=== PATIENT | female | born 1995 | race Two or more races ===

== ENCOUNTER 2020-06-28 13:47 | Outpatient (REF) | payer OTHER, SELFPAY ==
--- NOTE | 2020-06-28 | US_ITS ---
EXAMINATION: US SOFT TISSUE OF THE NECK CLINICAL INFORMATION: Right neck fullness. Status post hormone therapy. COMPARISON: None TECHNIQUE: Linear transducer grayscale and color Doppler examination of right neck with comparison left neck was performed. FINDINGS: Imaging of the right neck in the submandibular space reveals homogeneous submandibular gland, normal size and shape. It is similar to the left submandibular gland. The right submandibular gland measures 3.8 x 1.5 x 2.8 cm. The left submandibular gland measures 3.7 x 1.5 x 2.1 cm. Within the right submandibular space, there is a small lymph node measuring 1.7 x 0.9 x 1.5 cm. It has a normal central echogenic medulla and a hypoechoic cortex, normal characteristics. No additional lymph node seen. US/US soft tiss head and/or neck IMPRESSION: Small right submandibular space lymph node. It has benign characteristics. No additional lymph node seen. Bilateral submandibular glands are symmetrical, homogeneous and normal.
[2020-06-28 18:11] LABS: MANUAL DIFF FLAG NO
[2020-06-28 18:17] LABS: Basophils Absolute Auto 0.1 X10*3/uL (0.0-0.2); Basophils Percent Auto 0.6 % (0-2); Eosinophils Absolute Auto 0.1 X10*3/uL (0.0-0.4); Eosinophils Percent Auto 1.8 % (0-4); Hematocrit 39.5 % (37-47); Hemoglobin 12.8 g/dl (12.0-16.0); Imm Gran Abs Auto 0.03 X10*3/uL (0.00-0.03); Imm Gran Pct Auto 0.4 % (0.0-0.4); Lymphocytes Percent Auto 25.7 % (20-40); Mean Corpuscular HGB Conc 32.4 g/dl (31.0-35.0); Mean Corpuscular Volume 86.4 fL (80-98); Mean Platelet Volume 8.8 fL (9.4-12.3); Monocytes Absolute Auto 0.5 X10*3/uL (0.1-1.2); Monocytes Percent Auto 6.7 % (2-11); Neutrophils Absolute Auto 5.1 X10*3/uL (2.0-8.3); Neutrophils Percent Auto 64.8 % (45-73); Platelet Count 419 X10*3/uL (160-400); Red Blood Count 4.57 X10*6/uL (4.20-5.50); Red Cell Distribution Width 12.5 % (11.0-16.0); White Blood Count 7.9 X10*3/uL (4.8-10.8)
[2020-06-28 18:48] LABS: Cholesterol 138 mg/dL; HDL Cholesterol 49 mg/dL; LDL Cholesterol Calculated 76 mg/dl; Triglycerides 67 mg/dL
[2020-06-30 14:27] LABS: Follicle Stimulating Hormone 6.9 mIU/mL; Lutenizing Hormone 23.7 mIU/mL
[2020-06-30 19:02] LABS: LDL Cholesterol Direct 80 mg/dL (<100)
[2020-07-04 19:01] LABS: Estradiol Ultra Sensitive 283 pg/mL
[2020-07-05 12:47] LABS: Testosterone, Total 33 ng/dL (2-45)
== END 2020-06-28 13:48 | disposition home or self-care (01) ==
LOC: HO.US 13:47
PROVIDERS: Absent Provider Pediatrics Pediatric Endocrinology; PCP Pediatrics; Visit Provider Pediatrics
DX: R22.0 Localized swelling, mass and lump, head (principal); R22.1 Localized swelling, mass and lump, neck; F64.0 Transsexualism
CPT/HCPCS: 36415; 76536; 80061; 82670; 83001; 83002; 83721; 84403; 85025

== ENCOUNTER 2020-07-16 14:24 | Outpatient (REF) | payer OTHER, SELFPAY ==
[2020-07-16 15:26] LABS: Hematocrit 39.2 % (37-47); Hemoglobin 12.9 g/dl (12.0-16.0); Mean Corpuscular HGB Conc 32.9 g/dl (31.0-35.0); Mean Corpuscular Hemoglobin 28.3 pg (27.0-33.0); Platelet Count 438 X10*3/uL (160-400); Red Blood Count 4.56 X10*6/uL (4.20-5.50); Red Cell Distribution Width 12.5 % (11.0-16.0)
[2020-07-16 15:47] LABS: Glucose Random 89 mg/dL (60-115)
[2020-07-16 15:55] LABS: Estimated Average Glucose 103 mg/dL; Hemoglobin A1c % 5.2 %
[2020-07-16 16:15] LABS: Erythrocyte Sedimentation Rate 4 MM/HR (0-20)
== END 2020-07-16 14:25 | disposition home or self-care (01) ==
LOC: HO.LAB 14:24
PROVIDERS: Absent Provider Pediatrics; PCP Pediatrics; Visit Provider Pediatrics Pediatric Endocrinology
DX: R63.4 Abnormal weight loss (principal)
CPT/HCPCS: 36415; 82947; 83013; 83036; 84443; 85027; 85652

== ENCOUNTER 2020-07-22 13:41 | Outpatient (REF) | payer OTHER, SELFPAY ==
--- NOTE | 2020-07-22 13:50 | XR_ITS ---
EXAMINATION: XR CHEST CLINICAL INFORMATION: Unexplained weight loss COMPARISON: None TECHNIQUE: 2 views of the chest were obtained. FINDINGS: No significant abnormality is noted involving the heart, lungs, mediastinum, bony thorax or soft tissues. XR/XR chest 2V IMPRESSION: Unremarkable examination.
[2020-07-22 15:36] LABS: Alanine Aminotransferase 13 U/L (0-31); Albumin Level 4.9 g/dL (3.5-5.0); Alkaline Phosphatase 64 U/L (39-117); Anion Gap 13 (12-20); Aspartate Amino Transferase 16 U/L (5-31); Bilirubin Total 0.4 mg/dL (0.0-1.0); Blood Urea Nitrogen 11 mg/dL (9-16); C Reactive Protein 0.16 mg/dL (< or = 0.50); Calcium 9.5 mg/dL (8.4-10.2); Carbon Dioxide 27 mmol/L (22-29); Chloride 104 mmol/L (96-108); Estimated Glomerular Filt Rate > 60; Glucose Random 87 mg/dL (60-115); Potassium 4.3 mmol/l (3.3-5.1); Sodium 140 mmol/L (135-145); Total Protein 7.6 g/dL (6.5-8.0)
[2020-07-22 15:56] LABS: Syphilis Screen Nonreactive (Nonreactive)
[2020-07-22 16:03] LABS: Erythrocyte Sedimentation Rate 4 MM/HR (0-20)
[2020-07-23 04:26] LABS: HBc Num1 0.14 S/CO (0.00-0.79); HBsAGNum1 0.18 S/CO (0.00-0.99); Hepatitis B Core Antibody Nonreactive (Nonreactive); Hepatitis B Surface Antigen Negative (Negative); ~HepC Num1 0.43 S/CO (0.00-0.79); ~Hepatitis C Antibody Nonreactive (Nonreactive)
[2020-07-23 04:36] LABS: HIV AB/AG Nonreactive (Nonreactive); HIV Num 1 0.08 S/CO (0.00-0.99)
[2020-07-23 15:51] LABS: Anti Nuclear Antibody Screen NEGATIVE (NEGATIVE)
[2020-07-24 08:16] LABS: Hepatitis A Antibody IgG Nonreactive (Nonreactive); Hepatitis A Antibody IgM 0.36 Index (0-0.79); ~Hepatitis A Antibody IgG 0.76 S/CO (0.00-0.99); ~Hepatitis A Antibody IgM Nonreactive (Nonreactive)
== END 2020-07-22 13:42 | disposition home or self-care (01) ==
LOC: HO.LAB 13:41
PROVIDERS: PCP Pediatrics; Visit Provider Pediatrics
DX: R63.4 Abnormal weight loss (principal)
CPT/HCPCS: 36415; 71046; 80053; 85652; 86038; 86039; 86140; 86704; 86708; 86709; 86780; 86803; 87340; 87389

== ENCOUNTER 2020-08-06 14:09 | Outpatient (REF) | payer SELFPAY ==
[2020-08-06 14:53] LABS: Cholesterol 135 mg/dL
== END 2020-08-06 14:10 | disposition home or self-care (01) ==
LOC: HO.LNC 14:09
PROVIDERS: Visit Provider Pathology Anatomic Pathology & Clinical Pathology
DX: Z76.89 Persons encountering health services in other specified circumstances (principal)
CPT/HCPCS: 82465

== ENCOUNTER 2020-08-27 14:24 | Outpatient (REF) | payer OTHER, SELFPAY ==
[2020-08-27 14:44] LABS: COVID-19 Test Negative (Negative)
== END 2020-08-27 14:25 | disposition home or self-care (01) ==
LOC: HO.EMPCOV 14:24
PROVIDERS: Visit Provider Internal Medicine
DX: Z20.828 Contact with and (suspected) exposure to other viral communicable diseases (principal)
CPT/HCPCS: 87635; C9803

== ENCOUNTER 2020-09-13 13:53 | Outpatient (REF) | payer OTHER, SELFPAY ==
--- NOTE | 2020-09-13 13:55 | CT_ITS ---
EXAMINATION: CT SOFT TISSUE NECK WITH CONTRAST CLINICAL INFORMATION: Hypertrophy of tonsils. COMPARISON: None TECHNIQUE: Following the intravenous administration of 100 mL of Omnipaque 350 intravenous contrast, helical imaging was performed in the axial plane with generation of coronal and sagittal reformatted images. This CT examination was performed using dose optimization techniques as appropriate, variously including the following: *Automated exposure control *Adjustment of mA and/or kV according to patient size (this includes techniques or standardized protocols for targeted exams where dose is matched to indication/reason for exam; i.e. extremities or head) *Use of iterative reconstruction technique DLP: 253 mGy-cm FINDINGS: There are numerous bilateral neck lymph nodes seen. Largest level III left neck lymph node short axis measures 6 mm. The largest right neck lymph node measures 6 mm level II, sagittal image 45/4. The parotid glands are homogeneous in attenuation. The submandibular glands are normal. There is diffuse bilateral palatine tonsillar enhancement with narrowing of oropharyngeal airway. No abnormal enhancement seen. The submucosal space and parapharyngeal soft tissues are normal. The laryngeal structures are normal. The parapharyngeal fat is preserved. The carotid sheath vasculature opacify normally. No extra mucosal soft tissue mass or fluid collection is seen. No retropharyngeal fluid collection is seen. The thyroid gland is normal. The superior mediastinum is unremarkable. The lung apices are clear. The mastoid air cells and visualized portions of the paranasal sinuses are well-aerated. The temporomandibular joints are normal. No periapical disease is identified. No osseous abnormalities are seen. The imaged portions of the brain parenchyma are unremarkable. CT/CT soft tissue neck w con IMPRESSION: Diffuse bilateral palatine tonsillar enhancement with narrowing of the oropharyngeal airway. There is a small polyp or retention cyst left maxillary sinus. There are reactive small lymph nodes in bilateral neck.
[2020-09-13] MEDS: iohexoL 350 MG/ML 100 ML INFUS..BTL 60 ML IV (14:51)
== END 2020-09-13 13:54 | disposition home or self-care (01) ==
LOC: HO.CT 13:53
PROVIDERS: Visit Provider Otolaryngology
DX: J35.1 Hypertrophy of tonsils (principal)
CPT/HCPCS: 70491; Q9967

== ENCOUNTER 2020-09-16 14:57 | Outpatient (REF) | payer OTHER, SELFPAY ==
[2020-09-16 15:13] LABS: COVID-19 Test Negative (Negative)
== END 2020-09-16 14:58 | disposition home or self-care (01) ==
LOC: HO.EMPCOV 14:57
PROVIDERS: Visit Provider Internal Medicine
DX: Z20.822 Contact with and (suspected) exposure to COVID-19 (principal)
CPT/HCPCS: 36415; 87635; C9803

== ENCOUNTER → 2020-10-22 09:27 | Outpatient (REF) | payer OTHER, SELFPAY | LOC: HO.SL 09:27 | PROVIDERS: PCP Pediatrics; Visit Provider Pediatrics | DX: G47.39 Other sleep apnea (principal); R06.83 Snoring | CPT/HCPCS: 95806 ==

== ENCOUNTER 2020-12-21 18:49 | Emergency (ER) | payer OTHER, SELFPAY ==
--- NOTE | ~2020-12-21 | XR_ITS ---
EXAMINATION: XR CHEST CLINICAL INFORMATION: Palpitations. Tachycardia. COMPARISON: Most recent chest radiograph dated 07/22/2020. TECHNIQUE: Frontal view of the chest was obtained. FINDINGS: The lungs are clear. The cardiomediastinal silhouette is normal in size. There is no pleural effusion or pneumothorax. No acute osseous abnormality. XR/XR chest 1V IMPRESSION: No acute cardiopulmonary findings.
[2020-12-21 18:56] VITALS: BP 135/80; PULSE 115; RESP 18; TEMP 36.7; O2SAT 100; BMI 26.6
--- NOTE | 2020-12-21 19:39 | ECG_ITS ---
Test Reason : TACHYCARDIA/PALPITAT Blood Pressure : / mmHG Vent. Rate : 133 BPM Atrial Rate : 133 BPM P-R Int : 134 ms QRS Dur : 084 ms QT Int : 296 ms P-R-T Axes : 071 078 056 degrees QTc Int : 440 ms Sinus tachycardia Otherwise normal ECG When compared with ECG of 16-APR-2020 15:45, Vent. rate has increased BY 61 BPM Referred By: Elvia Graham Electronically Signed By:Sesar Clarke
[2020-12-21 19:44] LABS: MANUAL DIFF FLAG NO
[2020-12-21 19:45] LABS: Basophils Percent Auto 0.4 % (0-2); Eosinophils Absolute Auto 0.2 X10*3/uL (0.0-0.4); Eosinophils Percent Auto 1.5 % (0-4); Hematocrit 36.2 % (37-47); Imm Gran Abs Auto 0.02 X10*3/uL (0.00-0.03); Imm Gran Pct Auto 0.2 % (0.0-0.4); Lymphocytes Absolute Auto 2.4 X10*3/uL (1.2-4.9); Lymphocytes Percent Auto 24.2 % (20-40); Mean Corpuscular HGB Conc 33.1 g/dl (31.0-35.0); Mean Corpuscular Hemoglobin 25.5 pg (27.0-33.0); Mean Platelet Volume 8.4 fL (9.4-12.3); Monocytes Absolute Auto 0.8 X10*3/uL (0.1-1.2); Monocytes Percent Auto 8.2 % (2-11); Neutrophils Absolute Auto 6.6 X10*3/uL (2.0-8.3); Neutrophils Percent Auto 65.5 % (45-73); Platelet Count 418 X10*3/uL (160-400); Red Cell Distribution Width 15.6 % (11.0-16.0); White Blood Count 10.1 X10*3/uL (4.8-10.8)
[2020-12-21 19:51] VITALS: BP 122/76; PULSE 102
--- NOTE | 2020-12-21 19:51 | ED.ARRPALP ---
HPI - Arrhythmia/Palpitations General Chief Complaint: Arrhythmia/Palpitations <Elvia Graham NP - Last Filed: 12/21/20 20:58> Stated Complaint: elevated heart rate <Elvia Graham NP - Last Filed: 12/21/20 20:58> Time Seen by Provider: 12/21/20 19:20 <Elvia Graham NP - Last Filed: 12/21/20 20:58> Source: patient and family () <Elvia Graham NP - Last Filed: 12/21/20 20:58> Mode of arrival: ambulatory <Elvia Graham NP - Last Filed: 12/21/20 20:58> Limitations: no limitations <Elvia Graham NP - Last Filed: 12/21/20 20:58> History of Present Illness HPI narrative: 25-year-old female transitioning to male here with complaints of rapid, pounding heart rate for 45 minutes prior to arrival. Patient tells me she was sitting down when she started to feel like her heart rate was very fast. She checked her pulse oximeter and her heart rate was 110. She then stood up and her heart rate increased to 140s. She feels like her heart is racing and pounding. She also had some blurry vision but this is now resolved. She does have some dizziness but tells me that this is a chronic problem for her and does not feel worsened. no sob, cough. Patient is status postop day 3 after a tonsillectomy. She tells me this was a day stay procedure and there was no reported complications. She has been hydrating well. She has a slight sore throat but no bleeding. She had a low grade temp 99.8 max temp POD day 1/2. No leg pain or swelling. No OCP use. She is on testosterone gel. <Elvia Graham NP - Last Filed: 12/21/20 20:58> MD complaint: rapid heart beat and heart racing <Elvia Graham NP - Last Filed: 12/21/20 20:58> Related Data Home Medications: Home Medications Medication Instructions Recorded Confirmed testosterone 20.25 mg TOPICAL Q2D 12/21/20 12/21/20 <Elvia Graham NP - Last Filed: 12/21/20 20:58> Allergies/Adverse Reactions: Allergies Allergy/AdvReac Type Severity Reaction Status Date / Time adhesive [ADHESIVE] Allergy Unknown RASH Verified 12/21/20 19:14 penicillin V Allergy Unknown Rash Verified 12/21/20 19:14 Penicillins [PENICILLINS] Allergy Unknown RASH Verified 12/21/20 19:14 <Elvia Graham NP - Last Filed: 12/21/20 20:58> Review of Systems Review of Systems: Yes all other systems are reviewed and are negative <Elvia Graham NP - Last Filed: 12/21/20 20:58> Constitutional: Constitutional: Reports no additional constitutional complaints, Denies body ache(s), Denies chills, Denies fever(s), Denies headache(s) and Denies weakness <Elvia Graham NP - Last Filed: 12/21/20 20:58> Eyes: Eyes: Reports no additional eye complaints, Reports blurry vision and Denies change in vision <Elvia Graham NP - Last Filed: 12/21/20 20:58> ENT: Reports system reviewed and no additional complaints, except as documented, Reports dizziness (Chronic), Denies headache(s), Denies nasal congestion, Denies nasal discharge and Denies neck pain <Elvia Graham NP - Last Filed: 12/21/20 20:58> Cardiovascular: Cardiovascular: Reports no additional cardiovascular complaints, Denies chest pain, Denies leg edema, Reports palpitations and Denies dyspnea <Elvia Graham NP - Last Filed: 12/21/20 20:58> Respiratory: Respiratory: Reports no additional respiratory complaints, Denies cough and Denies dyspnea <Elvia Graham NP - Last Filed: 12/21/20 20:58> Gastrointestinal: Gastrointestinal: Reports no additional gastrointestinal complaints, Denies abdominal pain, Denies diarrhea, Denies nausea and Denies vomiting <Elvia Graham NP - Last Filed: 12/21/20 20:58> Genitourinary: Genitourinary: Reports no additional female genitourinary complaints and Denies urinary incontinence <Elvia Graham NP - Last Filed: 12/21/20 20:58> Musculoskeletal: Musculoskeletal: Reports no additional musculoskeletal complaints, Denies back pain, Denies arthralgias, Denies joint swelling, Denies neck pain, Denies numbness and Denies tingling <Elvia Graham NP - Last Filed: 12/21/20 20:58> Integumentary/Breasts: Skin/Breast: Reports system reviewed and no additional complaints, except as docu and Denies rash <Elvia Graham NP - Last Filed: 12/21/20 20:58> Neurologic: Reports system reviewed and no additional complaints, except as documented, Denies Abnormal speech present, Reports dizziness (Chronic), Denies headache(s), Denies numbness, Denies tingling and Denies weakness <Elvia Graham NP - Last Filed: 12/21/20 20:58> Endocrine: Endocrine: Reports palpitations <Elvia Graham NP - Last Filed: 12/21/20 20:58> [facility] Past Medical History Attestation statement: The following information was validated with the patient. <Elvia Graham NP - Last Filed: 12/21/20 20:58> Source: old records reviewed and nursing notes reviewed <Elvia Graham NP - Last Filed: 12/21/20 20:58> Surgical History: Surgical History H/O mastectomy History of tonsillectomy <Elvia Graham NP - Last Filed: 12/21/20 20:58> Social History Social History: Social History Alcohol intake: current Alcohol intake frequency: holidays/special occasions only Alcohol type: beer and wine Smoking Status: Never smoker Use of substances other than those prescribed or required for medical reasons: No Advance Directives: No Advance Directives Information Provided: No <Elvia Graham NP - Last Filed: 12/21/20 20:58> Physical Exam Vital Signs: Vital Signs: Last Vital Signs Temp 98.4 F 12/22/20 00:00 Pulse 125 H 12/22/20 00:05 Resp 12/22/20 00:00 BP 137/78 12/22/20 00:05 Pulse Ox 98 12/21/20 22:10 Body Mass Index 26.6 <Elvia Graham NP - Last Filed: 12/21/20 20:58> Vital Signs: Last Vital Signs Temp 98.4 F 12/22/20 00:00 Pulse 125 H 12/22/20 00:05 Resp 12/22/20 00:00 BP 137/78 12/22/20 00:05 Pulse Ox 98 12/21/20 22:10 Body Mass Index 26.6 <Carolina Siddiqi MD - Last Filed: 12/22/20 00:21> Const: General: cooperative, healthy appearing, comfortable and no acute distress <Elvia Graham NP - Last Filed: 12/21/20 20:58> Orientation/consciousness: patient oriented x3 <Elvia Graham NP - Last Filed: 12/21/20 20:58> Limitations: no limitations <Elvia Graham NP - Last Filed: 12/21/20 20:58> HENMT: Other: Posterior pharynx shows bilateral plaques. No active bleeding <Elvia Graham NP - Last Filed: 12/21/20 20:58> Head: Yes normal to inspection <Elvia Graham NP - Last Filed: 12/21/20 20:58> Ears: hearing grossly normal bilaterally <Elvia Graham NP - Last Filed: 12/21/20 20:58> General nose exam: Normal external nose present <Elvia Graham NP - Last Filed: 12/21/20 20:58> Face and sinus: Yes normal facial exam <Elvia Graham NP - Last Filed: 12/21/20 20:58> Mouth: Normal oral and palatal mucosa present <Elvia Graham NP - Last Filed: 12/21/20 20:58> Throat: Yes posterior oropharynx normal <Elvia Graham NP - Last Filed: 12/21/20 20:58> Eyes: General: appearance normal, both eyes and all related structures <Elvia Graham NP - Last Filed: 12/21/20 20:58> Pupils: Equal, round and reactive pupils present <Elvia Graham NP - Last Filed: 12/21/20 20:58> Neck: Neck: Yes normal visual inspection, Yes full ROM, Yes no lymphadenopathy and Yes no meningeal signs <Elvia Graham NP - Last Filed: 12/21/20 20:58> Chest: Chest palpation & inspection: normal inspection of the chest <Elvia Graham NP - Last Filed: 12/21/20 20:58> Resp: Effort & Inspection: normal respiratory effort <Elvia Graham NP - Last Filed: 12/21/20 20:58> Auscultation: clear to auscultation bilaterally <Elvia Graham NP - Last Filed: 12/21/20 20:58> Cardio: Rate: tachycardic <Elvia Graham NP - Last Filed: 12/21/20 20:58> Rhythm: regular rhythm <Elvia Graham NP - Last Filed: 12/21/20 20:58> Peripheral pulses: Peripheral pulses 2+ throughout <Elvia Graham NP - Last Filed: 12/21/20 20:58> GI: Inspection: Yes normal to inspection <Elvia Graham NP - Last Filed: 12/21/20 20:58> Palpation (GI): Soft to palpation and nontender <Elvia Graham NP - Last Filed: 12/21/20 20:58> Skin: General skin exam: no rashes or lesions noted <Elvia Graham NP - Last Filed: 12/21/20 20:58> Neuro: General: patient oriented x3, moves all extremities and no meningeal signs <Elvia Graham NP - Last Filed: 12/21/20 20:58> Cranial nerves: Yes Equal, round and reactive pupils present <Elvia Graham NP - Last Filed: 12/21/20 20:58> Cognition (Neuro): normal cognition <Elvia Graham NP - Last Filed: 12/21/20 20:58> Speech: No Abnormal speech present <Elvia Graham NP - Last Filed: 12/21/20 20:58> Extrem: General: Yes normal to inspection, Yes no pedal edema and Yes no calf tenderness <Elvia Graham NP - Last Filed: 12/21/20 20:58> Course Course Course Narrative: 25-year-old female transitioning to male here with tachycardia for less than 1 hour which occurred while at rest and is worsened with position changes. On arrival the patient is alert and oriented. She is noted to have a heart rate of 133 sinus tachycardia. Afebrile. Exam is benign. Postop day 3 from tonsillectomy. Will need labs, EKG, chest x-ray, orthostatic vital sign, UA. 2030-chest x-ray shows no underlying abnormality. EKG shows sinus tachycardia with no ischemia. Labs including D-dimer unremarkable. Orthostatic vital signs were significant for 30 point increase in heart rate. 1 L of fluid ordered for the patient. Will need monitoring for heart rate with recheck once the fluids are done. 2100-Sign out to Dr Siddiqi pending above. <Elvia Graham NP - Last Filed: 12/21/20 20:58> I received sign-out from ANDRES Graham. Patient finished 1 L of fluids, orthostatics were repeated, vital signs did improve however patient was still symptomatic. Second L of fluids going now Patient received a 2nd L of fluids, from sitting to standing patient's heart rate increased to 125, blood pressure change from 146/67 to 137/78. Patient states that she felt mildly lightheaded when she stood up. I discussed with the patient that she should get 1 more L Patient declined, patient states that she will follow-up with her primary care physician. I discussed with the patient also that whenever she sits up or stands up, she needs to do so slowly. <Carolina Siddiqi MD - Last Filed: 12/22/20 00:21> MDM - Arrhythmia/Palpitations MDM Narrative Medical decision making narrative: Anemia from recent surgical procedure, electrolyte abnormality, orthostatic hypotension, dehydration, PE, anxiety, arrythymia Less likely anemia with only mildly decreased hct not likely contributing to tachycardia. stable hgb Less likely electrolyte abnormality with normal chemistries. Less likely PE with negative d-dimer, no clinical signs/symptoms of DVT, no hypoxia/tachypnea <Elvia Graham NP - Last Filed: 12/21/20 20:58> Medical Records Attestation: I reviewed the patient's medical records. <Elvia Graham NP - Last Filed: 12/21/20 20:58> Lab Data Attestation: I reviewed the patient's lab results. <Elvia Graham NP - Last Filed: 12/21/20 20:58> Result diagrams: : 12/21/20 19:34 12/21/20 19:34 <Elvia Graham NP - Last Filed: 12/21/20 20:58> Labs: Lab Results 12/21/20 12/21/20 12/21/20 Range/Units 19:34 19:34 19:34 WBC 10.1 (4.8-10.8) X10*3/uL RBC 4.70 (4.20-5.50) X10*6/uL Hgb 12.0 (12.0-16.0) g/dl Hct 36.2 L (37-47) % MCV 77.0 L (80-98) fL MCH 25.5 L (27.0-33.0) pg MCHC 33.1 (31.0-35.0) g/dl RDW 15.6 (11.0-16.0) % Plt Count 418 H (160-400) X10*3/uL MPV 8.4 L (9.4-12.3) fL Immature Gran % (Auto) 0.2 (0.0-0.4) % Neut % (Auto) 65.5 (45-73) % Lymph % (Auto) 24.2 (20-40) % [place] % (Auto) 8.2 (2-11) % Eos % (Auto) 1.5 (0-4) % Baso % (Auto) 0.4 (0-2) % Lymph # (Auto) 2.4 (1.2-4.9) X10*3/uL [facility] # (Auto) 0.8 (0.1-1.2) X10*3/uL Eos # (Auto) 0.2 (0.0-0.4) X10*3/uL Baso # (Auto) 0.0 (0.0-0.2) X10*3/uL Abs Immat Gran (auto) 0.02 (0.00-0.03) X10*3/uL Absolute Neuts (auto) 6.6 (2.0-8.3) X10*3/uL Absolute Nucleated RBC 0.000 (0.0-0.012) X10*3/uL Nucleated RBC % (auto) 0.0 (0.0-0.2) /100WBC D-Dimer < 200 NG/ML Hold Blue Top SEE NOTE Sodium 140 (135-145) mmol/L Potassium 3.7 (3.3-5.1) mmol/L Chloride 105 (96-108) mmol/L Carbon Dioxide 24 (22-29) mmol/L Anion Gap 15 (12-20) BUN 6 L (9-16) mg/dL Creatinine 0.72 (0.5-1.4) mg/dL Estim Creat Clear Calc 114.8 Estimated GFR > 60 Random Glucose 111 (60-115) mg/dL Lactic Acid (0.5-2.0) mmol/L Calcium 9.8 (8.4-10.2) mg/dL Troponin I High Sens (<3.5-17.0) ng/L Urine Color Urine Appearance Urine pH (5.0-8.0) Ur Specific [place] (1.005-1.025) Urine Protein (NEG-TRACE) MG/DL Urine Glucose (UA) (NEG) MG/DL Urine Ketones (NEG) MG/DL Urine Blood (NEG) Urine Nitrite (NEG) Ur Leukocyte Esterase (NEG) Urine RBC (0) /HPF Urine WBC (0-4) /HPF Ur Squamous Epith Cells /LPF Urine Bacteria /LPF 12/21/20 12/21/20 12/21/20 Range/Units 19:34 19:34 20:14 WBC (4.8-10.8) X10*3/uL RBC (4.20-5.50) X10*6/uL Hgb (12.0-16.0) g/dl Hct (37-47) % MCV (80-98) fL MCH (27.0-33.0) pg MCHC (31.0-35.0) g/dl RDW (11.0-16.0) % Plt Count (160-400) X10*3/uL MPV (9.4-12.3) fL Immature Gran % (Auto) (0.0-0.4) % Neut % (Auto) (45-73) % Lymph % (Auto) (20-40) % [place] % (Auto) (2-11) % Eos % (Auto) (0-4) % Baso % (Auto) (0-2) % Lymph # (Auto) (1.2-4.9) X10*3/uL [facility] # (Auto) (0.1-1.2) X10*3/uL Eos # (Auto) (0.0-0.4) X10*3/uL Baso # (Auto) (0.0-0.2) X10*3/uL Abs Immat Gran (auto) (0.00-0.03) X10*3/uL Absolute Neuts (auto) (2.0-8.3) X10*3/uL Absolute Nucleated RBC (0.0-0.012) X10*3/uL Nucleated RBC % (auto) (0.0-0.2) /100WBC D-Dimer NG/ML Hold Blue Top Sodium (135-145) mmol/L Potassium (3.3-5.1) mmol/L Chloride (96-108) mmol/L Carbon Dioxide (22-29) mmol/L Anion Gap (12-20) BUN (9-16) mg/dL Creatinine (0.5-1.4) mg/dL Estim Creat Clear Calc Estimated GFR Random Glucose (60-115) mg/dL Lactic Acid 1.6 (0.5-2.0) mmol/L Calcium (8.4-10.2) mg/dL Troponin I High Sens < 3.5 (<3.5-17.0) ng/L Urine Color STRAW Urine Appearance CLEAR Urine pH 7.0 (5.0-8.0) Ur Specific [place] 1.010 (1.005-1.025) Urine Protein NEG (NEG-TRACE) MG/DL Urine Glucose (UA) NEG (NEG) MG/DL Urine Ketones NEG (NEG) MG/DL Urine Blood TRACE (NEG) Urine Nitrite NEG (NEG) Ur Leukocyte Esterase NEG (NEG) Urine RBC 0-2 (0) /HPF Urine WBC 0-2 (0-4) /HPF Ur Squamous Epith Cells 1+ /LPF Urine Bacteria NONE /LPF <Elvia Graham NP - Last Filed: 12/21/20 20:58> Lab Results 12/21/20 12/21/20 12/21/20 Range/Units 19:34 19:34 19:34 WBC 10.1 (4.8-10.8) X10*3/uL RBC 4.70 (4.20-5.50) X10*6/uL Hgb 12.0 (12.0-16.0) g/dl Hct 36.2 L (37-47) % MCV 77.0 L (80-98) fL MCH 25.5 L (27.0-33.0) pg MCHC 33.1 (31.0-35.0) g/dl RDW 15.6 (11.0-16.0) % Plt Count 418 H (160-400) X10*3/uL MPV 8.4 L (9.4-12.3) fL Immature Gran % (Auto) 0.2 (0.0-0.4) % Neut % (Auto) 65.5 (45-73) % Lymph % (Auto) 24.2 (20-40) % [place] % (Auto) 8.2 (2-11) % Eos % (Auto) 1.5 (0-4) % Baso % (Auto) 0.4 (0-2) % Lymph # (Auto) 2.4 (1.2-4.9) X10*3/uL [facility] # (Auto) 0.8 (0.1-1.2) X10*3/uL Eos # (Auto) 0.2 (0.0-0.4) X10*3/uL Baso # (Auto) 0.0 (0.0-0.2) X10*3/uL Abs Immat Gran (auto) 0.02 (0.00-0.03) X10*3/uL Absolute Neuts (auto) 6.6 (2.0-8.3) X10*3/uL Absolute Nucleated RBC 0.000 (0.0-0.012) X10*3/uL Nucleated RBC % (auto) 0.0 (0.0-0.2) /100WBC D-Dimer < 200 NG/ML Hold Blue Top SEE NOTE Sodium 140 (135-145) mmol/L Potassium 3.7 (3.3-5.1) mmol/L Chloride 105 (96-108) mmol/L Carbon Dioxide 24 (22-29) mmol/L Anion Gap 15 (12-20) BUN 6 L (9-16) mg/dL Creatinine 0.72 (0.5-1.4) mg/dL Estim Creat Clear Calc 114.8 Estimated GFR > 60 Random Glucose 111 (60-115) mg/dL Lactic Acid (0.5-2.0) mmol/L Calcium 9.8 (8.4-10.2) mg/dL Troponin I High Sens (<3.5-17.0) ng/L Urine Color Urine Appearance Urine pH (5.0-8.0) Ur Specific [place] (1.005-1.025) Urine Protein (NEG-TRACE) MG/DL Urine Glucose (UA) (NEG) MG/DL Urine Ketones (NEG) MG/DL Urine Blood (NEG) Urine Nitrite (NEG) Ur Leukocyte Esterase (NEG) Urine RBC (0) /HPF Urine WBC (0-4) /HPF Ur Squamous Epith Cells /LPF Urine Bacteria /LPF 12/21/20 12/21/20 12/21/20 Range/Units 19:34 19:34 20:14 WBC (4.8-10.8) X10*3/uL RBC (4.20-5.50) X10*6/uL Hgb (12.0-16.0) g/dl Hct (37-47) % MCV (80-98) fL MCH (27.0-33.0) pg MCHC (31.0-35.0) g/dl RDW (11.0-16.0) % Plt Count (160-400) X10*3/uL MPV (9.4-12.3) fL Immature Gran % (Auto) (0.0-0.4) % Neut % (Auto) (45-73) % Lymph % (Auto) (20-40) % [place] % (Auto) (2-11) % Eos % (Auto) (0-4) % Baso % (Auto) (0-2) % Lymph # (Auto) (1.2-4.9) X10*3/uL [facility] # (Auto) (0.1-1.2) X10*3/uL Eos # (Auto) (0.0-0.4) X10*3/uL Baso # (Auto) (0.0-0.2) X10*3/uL Abs Immat Gran (auto) (0.00-0.03) X10*3/uL Absolute Neuts (auto) (2.0-8.3) X10*3/uL Absolute Nucleated RBC (0.0-0.012) X10*3/uL Nucleated RBC % (auto) (0.0-0.2) /100WBC D-Dimer NG/ML Hold Blue Top Sodium (135-145) mmol/L Potassium (3.3-5.1) mmol/L Chloride (96-108) mmol/L Carbon Dioxide (22-29) mmol/L Anion Gap (12-20) BUN (9-16) mg/dL Creatinine (0.5-1.4) mg/dL Estim Creat Clear Calc Estimated GFR Random Glucose (60-115) mg/dL Lactic Acid 1.6 (0.5-2.0) mmol/L Calcium (8.4-10.2) mg/dL Troponin I High Sens < 3.5 (<3.5-17.0) ng/L Urine Color STRAW Urine Appearance CLEAR Urine pH 7.0 (5.0-8.0) Ur Specific [place] 1.010 (1.005-1.025) Urine Protein NEG (NEG-TRACE) MG/DL Urine Glucose (UA) NEG (NEG) MG/DL Urine Ketones NEG (NEG) MG/DL Urine Blood TRACE (NEG) Urine Nitrite NEG (NEG) Ur Leukocyte Esterase NEG (NEG) Urine RBC 0-2 (0) /HPF Urine WBC 0-2 (0-4) /HPF Ur Squamous Epith Cells 1+ /LPF Urine Bacteria NONE /LPF <Carolina Siddiqi MD - Last Filed: 12/22/20 00:21> Imaging Data Chest x-ray: Attestation: I personally reviewed and interpreted this imaging study as follows: <Elvia Graham NP - Last Filed: 12/21/20 20:58> Radiologist's impression: [address] [id number] ReportSigned Patient: Trini Arellano#: [id number]: 1995Acct:[id number]/Sex: 25 / FADM Date: 12/21/20Loc: HO.EDAttending Dr: Ordering Physician: Tee Dougherty MD Date of Service: 12/21/20 Procedure(s): XR chest 1V Accession Number(s): [id number] cc: Tee Dougherty MD~ EXAMINATION: XR CHEST CLINICAL INFORMATION: Palpitations. Tachycardia. COMPARISON: Most recent chest radiograph dated 07/22/2020. TECHNIQUE: Frontal view of the chest was obtained. FINDINGS: The lungs are clear. The cardiomediastinal silhouette is normal in size. There is no pleural effusion or pneumothorax. No acute osseous abnormality. XR/XR chest 1V IMPRESSION: No acute cardiopulmonary findings. <Elvia Graham NP - Last Filed: 12/21/20 20:58> ECG Data Attestation: I personally reviewed and interpreted this ECG as follows: <Elvia Graham NP - Last Filed: 12/21/20 20:58> ECG interpretation date: 12/21/20 <Elvia Graham NP - Last Filed: 12/21/20 20:58> ECG interpretation time: 19:03 <Elvia Graham NP - Last Filed: 12/21/20 20:58> Interpretation: ST with rate 133, normal pr, normal qrs, normal qtc <Elvia Graham NP - Last Filed: 12/21/20 20:58> Discharge Plan Discharge Clinical Impression: Sinus tachycardia, Orthostatic hypertension <Elvia Graham NP - Last Filed: 12/21/20 20:58> Patient Disposition: Home, Self-Care <Elvia Graham NP - Last Filed: 12/21/20 20:58> Instructions: Hypotension (ED) <Elvia Graham NP - Last Filed: 12/21/20 20:58> Additional Instructions: Stay well hydrated. Please follow-up with your primary care physician tomorrow. If you have any worsening or new symptoms, please return to the emergency room or call 911 <Elvia Graham NP - Last Filed: 12/21/20 20:58> Prescriptions: No Action testosterone 20.25 mg/1.25 gram (1.62 %) gel in metered-dose pump 20.25 mg topical Q2D RF: 0 <Elvia Graham NP - Last Filed: 12/21/20 20:58>
[2020-12-21 19:52] VITALS: BP 119/75; PULSE 112
[2020-12-21 19:53] VITALS: BP 124/85; PULSE 120
[2020-12-21 19:58] LABS: D Dimer < 200 NG/ML
[2020-12-21] MEDS: 0.9 % Sodium Chloride 1,000 ML 999 ML IV (19:58)
[2020-12-21 20:02] LABS: Lactic Acid 1.6 mmol/L (0.5-2.0)
[2020-12-21 20:05] LABS: Anion Gap 15 (12-20); Blood Urea Nitrogen 6 mg/dL (9-16); Calcium 9.8 mg/dL (8.4-10.2); Carbon Dioxide 24 mmol/L (22-29); Chloride 105 mmol/L (96-108); Creatinine Clr Calc Pharmacy 114.8; Estimated Glomerular Filt Rate > 60; Glucose Random 111 mg/dL (60-115); Potassium 3.7 mmol/L (3.3-5.1); Sodium 140 mmol/L (135-145)
[2020-12-21 20:11] LABS: Troponin-I High Sensitivity < 3.5 ng/L (<3.5-17.0)
[2020-12-21 20:29] LABS: Glucose Urine UA NEG (NEG); Leukocyte Esterase Urine NEG (NEG); Nitrite Urine NEG (NEG); Urine Blood TRACE (NEG); Urine Ketones NEG (NEG); Urine Protein NEG (NEG-TRACE)
[2020-12-21 20:31] LABS: Appearance Urine CLEAR; Color Urine STRAW
[2020-12-21 20:44] LABS: RBC Urine 0-2 /HPF (0); Squamous Epithelial Cell Urine 1+ /LPF; WBC Urine 0-2 /HPF (0-4)
[2020-12-21 22:09] VITALS: BP 107/67; BP 113/68; PULSE 118; PULSE 97
[2020-12-21 22:10] VITALS: BP 107/67; BP 126/83; PULSE 102; PULSE 97; RESP 16; O2SAT 98
[2020-12-21] MEDS: 0.9 % Sodium Chloride 1,000 ML 999 ML IVCONT (22:21)
[2020-12-22] VITALS: BP 116/67; PULSE 95; RESP 14; TEMP 36.9
[2020-12-22 00:01] VITALS: BP 116/65; PULSE 105
[2020-12-22 00:05] VITALS: BP 116/67; BP 137/78; PULSE 125; PULSE 95
== END 2020-12-22 00:48 | disposition home or self-care (01) ==
PROVIDERS: Nurse Practitioner Family; Emergency Provider Emergency Medicine; PCP Psychiatry & Neurology Neurology
DX: R00.0 Tachycardia, unspecified (principal); I95.1 Orthostatic hypotension; R00.2 Palpitations; J02.9 Acute pharyngitis, unspecified; Z98.890 Other specified postprocedural states; F64.0 Transsexualism
CPT/HCPCS: 36415; 71045; 80048; 81001; 83605; 84484; 85025; 85379; 87040; 93005; 96360; 96361; 99285

== ENCOUNTER 2021-01-02 14:05 | Outpatient (REF) | payer OTHER, SELFPAY ==
[2021-01-02 15:04] LABS: MANUAL DIFF FLAG NO
[2021-01-02 15:10] LABS: Basophils Absolute Auto 0.1 X10*3/uL (0.0-0.2); Basophils Percent Auto 0.6 % (0-2); Eosinophils Absolute Auto 0.2 X10*3/uL (0.0-0.4); Eosinophils Percent Auto 2.2 % (0-4); Hematocrit 36.9 % (37-47); Hemoglobin 11.6 g/dl (12.0-16.0); Imm Gran Abs Auto 0.01 X10*3/uL (0.00-0.03); Imm Gran Pct Auto 0.1 % (0.0-0.4); Lymphocytes Absolute Auto 2.8 X10*3/uL (1.2-4.9); Lymphocytes Percent Auto 32.3 % (20-40); Mean Corpuscular HGB Conc 31.4 g/dl (31.0-35.0); Mean Corpuscular Hemoglobin 24.8 pg (27.0-33.0); Mean Corpuscular Volume 78.8 fL (80-98); Monocytes Absolute Auto 0.5 X10*3/uL (0.1-1.2); Monocytes Percent Auto 6.2 % (2-11); Neutrophils Absolute Auto 5.1 X10*3/uL (2.0-8.3); Neutrophils Percent Auto 58.6 % (45-73); Platelet Count 541 X10*3/uL (160-400); Red Blood Count 4.68 X10*6/uL (4.20-5.50); Red Cell Distribution Width 16.4 % (11.0-16.0); White Blood Count 8.7 X10*3/uL (4.8-10.8)
[2021-01-02 15:30] LABS: Cholesterol 155 mg/dL; HDL Cholesterol 41 mg/dL; LDL Cholesterol Calculated 93 mg/dl; Triglycerides 106 mg/dL
[2021-01-03 05:07] LABS: Follicle Stimulating Hormone 4.9 mIU/mL; Lutenizing Hormone 5.3 mIU/mL
[2021-01-03 05:31] LABS: LDL Cholesterol Direct 90 mg/dL (<100)
[2021-01-06 18:52] LABS: Estradiol Ultra Sensitive 53 pg/mL
[2021-01-10 15:32] LABS: Testosterone, Total 189 ng/dL (2-45)
== END 2021-01-02 14:06 | disposition home or self-care (01) ==
LOC: HO.LAB 14:05
PROVIDERS: PCP Pediatrics; Visit Provider Pediatrics Pediatric Endocrinology
DX: F64.9 Gender identity disorder, unspecified (principal)
CPT/HCPCS: 36415; 80061; 82670; 83001; 83002; 83721; 84403; 85025

== ENCOUNTER 2021-01-06 14:15 | Outpatient (REF) | payer OTHER, SELFPAY ==
[2021-01-06 15:50] LABS: Free T4 (Free Thyroxine) 0.91 ng/dL (0.71-1.85); Thyroid Stimulating Hormone 0.62 uIU/mL (0.32-4.0)
== END 2021-01-06 14:16 | disposition home or self-care (01) ==
LOC: HO.LAB 14:15
PROVIDERS: PCP Pediatrics; Visit Provider Pediatrics
DX: R00.0 Tachycardia, unspecified (principal)
CPT/HCPCS: 36415; 84439; 84443

== ENCOUNTER 2021-01-29 11:00 | Outpatient (REF) | payer OTHER, SELFPAY ==
--- NOTE | ~2021-01-29 | MR_ITS ---
EXAMINATION: MR BRAIN WITHOUT AND WITH CONTRAST CLINICAL INFORMATION: Sensory neuronal hearing loss. Self-reported episodes of off balance for 1 year. 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 Decreased hearing in right ear increasing for the past 5 years. COMPARISON: None TECHNIQUE: Multiplanar, multisequence MRI of the brain was obtained before and after the intravenous administration of 7 mL Gadavist. Internal auditory canal protocol MRI of the brain is performed. FINDINGS: No intracranial hemorrhage, tumors or infarcts are noted. The ventricles and sulci are normal in size and configuration. The craniocervical junction cerebellar tonsils are normal in configuration. Susceptibility weighted images reveal no evidence of acute or chronic hemorrhage within the brain parenchyma. No marrow signal abnormalities are identified. Thin section imaging through the internal auditory canals demonstrates normal appearance of the visualized components of the 7th and 8th cranial nerve complexes. The temporal bone labyrinths are normal in configuration and signal intensity. No mastoid effusions are visualized. No lesions are noted within the internal auditory canals. The brainstem is normal in appearance. No abnormal enhancement of the facial nerves is visualized. Whole brain axial T1-postcontrast enhanced images reveal no abnormal enhancement of the brain. MR/MR head/brain wo/w con IMPRESSION: Normal unenhanced and IV contrast enhanced internal auditory canal protocol MRI of the brain. Normal appearance of the visualized components of the right 7th and 8th cranial nerve complexes and right temporal bone labyrinths. No evidence of vestibular schwannomas. No mastoid effusions.
== END 2021-01-29 11:01 | disposition home or self-care (01) ==
LOC: HO.MRI 11:00
PROVIDERS: Visit Provider Otolaryngology
DX: H90.41 Sensorineural hearing loss, unilateral, right ear, with unrestricted hearing on the contralateral side (principal)
CPT/HCPCS: 70553; A9585

== ENCOUNTER → 2021-02-24 10:57 | Outpatient (REF) | payer OTHER, SELFPAY ==
--- NOTE | 2021-02-24 11:02 | CA_ITS ---
Transthoracic Echocardiogram Patient (Last, First, Middle): Herman Arellano, Gender: Female Date of : 1995 Age: 25 Procedure Date: 02/24/2021 Procedure Type: Transthoracic Echocardiogram Location: OP Height: 162.56 cm Weight: 68.04 kg BSA: 1.73 m2 Heart Rate: bpm BP: 110 / 70 mmHg Examination Supervisor: DERICK Referring MD: Danae Rader NP Symptoms: PALPITATIONS Study Quality: Good ECG Rhythm: Sinus Conclusions: - The left ventricular systolic function is normal. The visually estimated ejection fraction is between 60-65%. - No obvious valvular pathology seen on this study. Findings Left Ventricle Normal left ventricular cavity size. There is normal left ventricular wall thickness. The left ventricular systolic function is normal. The visually estimated ejection fraction is between 60-65%. There is no evidence of regional wall motion abnormalities. Diastolic function is normal for age. Right Ventricle Normal right ventricular cavity size and systolic function. Atria Both atria are normal in size. Aortic Valve There is a normal trileaflet aortic valve. There is no aortic valve stenosis. There is no aortic valve regurgitation. Mitral Valve The mitral valve appears normal. There is trace mitral valve regurgitation. There is no mitral valve stenosis. Pulmonic Valve The pulmonic valve was not well visualized. Tricuspid Valve Normal tricuspid valve structure. There is trace tricuspid valve regurgitation. The pulmonary artery systolic pressure is normal. Great Vessels The aortic annulus, sinuses of valsalva, asc aorta, and aortic arch are normal in size. Venous The inferior vena cava is normal in size and collapses greater than 50% with inspiration. Pericardium/Pleural There is no evidence of pericardial effusion. Prior Study Comparison No prior study available for comparison. Recommendations, Care & Conclusions No obvious valvular pathology seen on this study. Measurements 2D Linear Measurements RVIDd: 2.82 RVIDd Index: 1.63 IVSd: 0.64 0.6-0.9/0.6-1.0 cm LVIDd: 4.68 3.9-5.3/4.2-5.9 cm LVIDd Index: 2.71 2.4-3.2/2.2-3.1 cm/m2 LVIDs: 3.04 2.0-3.6 cm LVPWd: 0.84 0.7-1.1 cm Ao Root: 2.60 2.1-3.5 cm LA Diam: 2.90 2.7-3.8/3.0-4.0 cm LAIDs Index: 1.68 1.5-2.3 cm/m2 LV Mass: 135.55 67-162/88-224 g LV Mass Index: 78.35 43-95/49-115 g/m2 LVOT Diam: 2.10 3.0+(-)1.3 cm 2D Systolic Function EF 4C: 61.40 >55% EF 2C: 65.60 >55% EF BiP: 64.50 >55% Mitral Valve MV Pk E: 0.91 MV PK A: 0.52 MV Decel Time: 197.00 E/A: 1.70 E'Lateral: 17.40 E'Medial: 12.70 E/E' Med: 7.20 E/E' Lat: 5.20 Aortic Valve AoV Pk Irvin: 1.24 AoV Mn Irvin: 0.91 AoV VTI: 0.25 AoV Pk Grad: 6.00 Aov Mn Grad: 4.00 DELMAR Cont.VTI: 3.22 LVOT LVOT Pk Irvin: 1.07 LVOT Mn Irvin: 0.72 LVOT VTI: 0.23 LVOT Pk Grad: 5.00 LVOT Mn Grad: 2.00 LVOT Diam: 2.10 LVOT Area: 3.46 Diastolic Function MV Pk E: 0.91 MV Pk A: 0.52 E/A: 1.70 E'Medial: 12.70 E/E' Med: 7.20 E' Laterial: 17.40 E/E' Lat: 5.20 Tricuspid Valve TR Pk Grad: 14.00 RA Press: 3.00 RVSP: 17.00 Great Vessels Aorta Ao Root-2D: 2.60 2.0-3.7 cm Ao Asc: 2.30 2.1-3.4 cm Ao Arch: 2.50 Updated in Other Vendor System with Status of Final Johann Garcia MD electronically signed on 02/24/2021 12:41:08 PM with status of Final
== END ==
LOC: HO.CARD 10:57
PROVIDERS: Visit Provider Nurse Practitioner Acute Care
DX: R00.2 Palpitations (principal); R00.0 Tachycardia, unspecified
CPT/HCPCS: 93306

== ENCOUNTER 2021-03-24 09:14 | Outpatient (REF) | payer OTHER, SELFPAY ==
[2021-03-24 10:57] LABS: Anion Gap 12 (12-20); Blood Urea Nitrogen 10 mg/dL (9-16); Calcium 9.6 mg/dL (8.4-10.2); Carbon Dioxide 27 mmol/L (22-29); Chloride 106 mmol/L (96-108); Estimated Glomerular Filt Rate > 60; Glucose Random 88 mg/dL (60-115); Potassium 4.7 mmol/L (3.3-5.1); Sodium 140 mmol/L (135-145)
== END 2021-03-24 09:15 | disposition home or self-care (01) ==
LOC: HO.LAB 09:14
PROVIDERS: PCP Internal Medicine Sports Medicine; Visit Provider Internal Medicine Sports Medicine
DX: Z13.1 Encounter for screening for diabetes mellitus (principal); Z13.89 Encounter for screening for other disorder; Z83.3 Family history of diabetes mellitus; Z84.1 Family history of disorders of kidney and ureter
CPT/HCPCS: 36415; 80048

== ENCOUNTER 2021-05-08 13:03 | Outpatient (REF) | payer OTHER, SELFPAY ==
[2021-05-08 15:45] LABS: MANUAL DIFF FLAG NO
[2021-05-08 15:50] LABS: Basophils Absolute Auto 0.1 X10*3/uL (0.0-0.2); Eosinophils Absolute Auto 0.3 X10*3/uL (0.0-0.4); Eosinophils Percent Auto 2.7 % (0-4); Hematocrit 38.1 % (37-47); Imm Gran Abs Auto 0.02 X10*3/uL (0.00-0.03); Imm Gran Pct Auto 0.2 % (0.0-0.4); Lymphocytes Absolute Auto 2.6 X10*3/uL (1.2-4.9); Lymphocytes Percent Auto 27.2 % (20-40); Mean Corpuscular HGB Conc 31.5 g/dl (31.0-35.0); Mean Corpuscular Volume 76.4 fL (80-98); Mean Platelet Volume 9.4 fL (9.4-12.3); Monocytes Absolute Auto 0.6 X10*3/uL (0.1-1.2); Monocytes Percent Auto 6.8 % (2-11); Neutrophils Absolute Auto 5.9 X10*3/uL (2.0-8.3); Neutrophils Percent Auto 62.1 % (45-73); Platelet Count 499 X10*3/uL (160-400); Red Blood Count 4.99 X10*6/uL (4.20-5.50); Red Cell Distribution Width 15.7 % (11.0-16.0); White Blood Count 9.5 X10*3/uL (4.8-10.8)
[2021-05-08 16:07] LABS: Cholesterol 155 mg/dL; HDL Cholesterol 53 mg/dL; LDL Cholesterol Calculated 90 mg/dl; Triglycerides 60 mg/dL
[2021-05-09 08:18] LABS: Syphilis Screen Nonreactive (Nonreactive)
[2021-05-09 08:57] LABS: HIV AB/AG Nonreactive (Nonreactive); HIV Num 1 0.08 S/CO (0.00-0.99); ~HepC Num1 0.79 S/CO (0.00-0.79); ~Hepatitis C Antibody Nonreactive (Nonreactive)
[2021-05-09 09:15] LABS: HBS Num1 12.91 mIU/mL (0-7.99); ~Hepatitis B Surface Antibody REACTIVE (Nonreactive)
[2021-05-09 09:41] LABS: LDL Cholesterol Direct 85 mg/dL (<100)
[2021-05-13 07:59] LABS: Follicle Stimulating Hormone 26.6
== END 2021-05-08 13:04 | disposition home or self-care (01) ==
LOC: HO.LAB 13:03
PROVIDERS: Pediatrics Pediatric Endocrinology; Visit Provider Obstetrics & Gynecology Reproductive Endocrinology
DX: Z01.84 Encounter for antibody response examination (principal); Z11.9 Encounter for screening for infectious and parasitic diseases, unspecified; Z11.4 Encounter for screening for human immunodeficiency virus [HIV]; Z11.59 Encounter for screening for other viral diseases; F64.9 Gender identity disorder, unspecified
CPT/HCPCS: 36415; 80061; 83001; 83002; 83721; 84402; 84403; 85025; 86706; 86780; 86803; 87389

== ENCOUNTER 2021-05-08 14:21 | Outpatient (REF) | payer OTHER, SELFPAY | END 2021-05-08 14:22 | disposition home or self-care (01) | LOC: WCCF 14:21 | PROVIDERS: Absent Provider Pediatrics Pediatric Endocrinology; PCP Internal Medicine Sports Medicine; Referring Provider Obstetrics & Gynecology Reproductive Endocrinology; Visit Provider Internal Medicine | DX: Z20.822 Contact with and (suspected) exposure to COVID-19 (principal); F64.0 Transsexualism; F64.9 Gender identity disorder, unspecified | CPT/HCPCS: 36415; 80061; 83001; 83002; 83721; 84402; 84403; 85025; 86706; 86780; 86803; 87389; 87635 ==

== ENCOUNTER 2021-06-16 12:18 | Outpatient (REF) | payer OTHER, SELFPAY ==
--- NOTE | ~2021-06-16 | XR_ITS ---
EXAMINATION: XR THORACIC SPINE CLINICAL INFORMATION: Pain COMPARISON: None TECHNIQUE: 3 views of the thoracic spine were obtained. FINDINGS: There is no fracture or bone destruction seen and the vertebral alignment is normal. There is no disc space narrowing. There is no abnormality of the paraspinal soft tissues. XR/XR thoracic spine 3V IMPRESSION: Unremarkable examination.
== END 2021-06-16 12:19 | disposition home or self-care (01) ==
LOC: HO.XRAY 12:18
PROVIDERS: Absent Provider Internal Medicine Sports Medicine; PCP Internal Medicine Sports Medicine; Visit Provider Nurse Practitioner Family
DX: M54.6 Pain in thoracic spine (principal)
CPT/HCPCS: 72072

== ENCOUNTER 2021-06-23 14:09 | Outpatient (REF) | payer OTHER, SELFPAY ==
--- NOTE | ~2021-06-23 | US_ITS ---
EXAMINATION: US SOFT TISSUE NECK CLINICAL INFORMATION: Palpable mass in the neck. COMPARISON: None TECHNIQUE: Ultrasound of the neck soft tissues is performed with high- frequency de jesus-scale imaging. FINDINGS: Imaging to the left of midline in the submandibular space where patient lesion corresponds with 2 lymph nodes measuring 1.2 x 0.5 x 1.1 cm and 1.0 x 0.9 x 0.6 cm. Both the lymph nodes have central echogenic medulla and hypoechoic cortex typical lymph node pattern. Normal vascularity seen in the central part of the lymph node. US/US soft tiss head and/or neck IMPRESSION: Two benign-appearing lymph nodes one of which is palpable measuring 1.2 cm in the left of midline in the submandibular space.
== END 2021-06-23 14:10 | disposition home or self-care (01) ==
LOC: HO.US 14:09
PROVIDERS: PCP Internal Medicine Sports Medicine; Visit Provider Nurse Practitioner Family
DX: R22.1 Localized swelling, mass and lump, neck (principal)
CPT/HCPCS: 76536

== ENCOUNTER 2021-07-23 08:04 | Outpatient (REF) | payer OTHER, SELFPAY ==
--- NOTE | ~2021-07-23 | MR_ITS ---
EXAMINATION: MR THORACIC SPINE WITHOUT CONTRAST CLINICAL INFORMATION: Persistent [id number] back pain. COMPARISON: None TECHNIQUE: MRI of the thoracic spine was obtained using routine sequences without contrast. FINDINGS: There is very mild disc degeneration and minimal annular bulge with endplate Schmorl's nodes at the T11-T12 level. At the T12-L1 level, there is mild disc space narrowing with endplate Schmorl's nodes and a generalized disc bulge with a shallow right paracentral disc protrusion mild impressing upon the ventral thecal sac. No central canal stenosis or foraminal narrowing evident. The remaining thoracic discs are well hydrated and normal in appearance. No cord signal abnormality or syrinx is identified. No marrow edema visible. The imaged cauda equina nerve roots appear normal. There is an intraosseous hemangioma in the T5 vertebral body. The paraspinal soft tissues appear normal. The imaged portions of the lungs are clear. MR/MR thoracic spine wo con IMPRESSION: Focal right paracentral disc protrusion at the T12-L1 level without cord deformity. Mild spondylosis at the T11-T12 level. No central canal stenosis.
== END 2021-07-23 08:05 | disposition home or self-care (01) ==
LOC: HO.MRI 08:04
PROVIDERS: PCP Internal Medicine Sports Medicine; Visit Provider Internal Medicine Sports Medicine
DX: M54.6 Pain in thoracic spine (principal)
CPT/HCPCS: 72146

== ENCOUNTER 2021-09-03 18:11 | Outpatient (REF) | payer OTHER, SELFPAY ==
[2021-09-03 18:53] LABS: COVID-19 Test Negative (Negative)
== END 2021-09-03 18:12 | disposition home or self-care (01) ==
LOC: HO.LAB 18:11
PROVIDERS: PCP Internal Medicine Sports Medicine; Visit Provider Internal Medicine
DX: Z20.822 Contact with and (suspected) exposure to COVID-19 (principal)
CPT/HCPCS: 36415; 87635

== ENCOUNTER 2021-09-25 13:10 | Outpatient (REF) | payer OTHER, SELFPAY ==
--- NOTE | ~2021-09-25 | US_ITS ---
EXAMINATION:US pelvic complete CLINICAL INFORMATION: Reason for Exam LLQ PAIN COMPARISON: No priors available. LMP: 08/24/2021 FINDINGS: UTERUS: The uterus is anteverted. Size: 8.5 x 2.5 x 4.5 cm. Uterine mass: There is no uterine mass. Cervix: Grossly unremarkable. Endometrium: No ultrasound evidence of endometrial lesion. endometrial thickness measures 1.1 cm ADNEXA: Normal Right ovary: Normal in size. Left ovary: Normal in size. Doppler exam: Normal Doppler flow identified in both ovaries. FREE FLUID: Trace amount of free fluid. OTHER FINDINGS: None US/US pelvic complete IMPRESSION: Normal pelvic ultrasound.
== END 2021-09-25 13:11 | disposition home or self-care (01) ==
LOC: HO.US 13:10
PROVIDERS: Visit Provider Obstetrics & Gynecology
DX: R10.32 Left lower quadrant pain (principal)
CPT/HCPCS: 76856

== ENCOUNTER 2021-10-28 14:17 | Outpatient (REF) | payer OTHER, SELFPAY ==
[2021-10-28 14:33] LABS: MANUAL DIFF FLAG NO
[2021-10-28 14:54] LABS: Basophils Absolute Auto 0.1 X10*3/uL (0.0-0.2); Basophils Percent Auto 0.7 % (0-2); Eosinophils Absolute Auto 0.2 X10*3/uL (0.0-0.4); Eosinophils Percent Auto 2.1 % (0-4); Hematocrit 34.8 % (37.0-47.0); Hemoglobin 10.6 g/dl (12.0-16.0); Imm Gran Abs Auto 0.02 X10*3/uL (0.00-0.03); Imm Gran Pct Auto 0.2 % (0.0-0.4); Lymphocytes Absolute Auto 2.8 X10*3/uL (1.2-4.9); Lymphocytes Percent Auto 34.4 % (20-40); Mean Corpuscular HGB Conc 30.5 g/dl (31.0-35.0); Mean Corpuscular Hemoglobin 22.8 pg (27.0-33.0); Mean Platelet Volume 9.1 fL (9.4-12.3); Monocytes Absolute Auto 0.7 X10*3/uL (0.1-1.2); Monocytes Percent Auto 8.9 % (2-11); Neutrophils Absolute Auto 4.4 x10*3/uL (2.0-8.3); Neutrophils Percent Auto 53.7 % (45-73); Platelet Count 442 X10*3/uL (160-400); Red Blood Count 4.64 X10*6/uL (4.20-5.50); Red Cell Distribution Width 15.1 % (11.0-16.0); White Blood Count 8.1 X10*3/uL (4.8-10.8)
[2021-10-29 10:52] LABS: LDL Cholesterol Direct 63 mg/dL (<100)
[2021-11-01 14:25] LABS: Testosterone, Free 5.3 pg/mL (0.1-6.4); Testosterone, Total 47 ng/dL (2-45)
== END 2021-10-28 14:18 | disposition home or self-care (01) ==
LOC: HO.LAB 14:17
PROVIDERS: PCP Internal Medicine Sports Medicine; Visit Provider Pediatrics Pediatric Endocrinology
DX: F64.9 Gender identity disorder, unspecified (principal); F64.0 Transsexualism
CPT/HCPCS: 36415; 83721; 84402; 84403; 85025

== ENCOUNTER 2021-11-05 14:07 | Outpatient (REF) | payer OTHER, SELFPAY ==
[2021-11-05 15:35] LABS: Iron 21 mcg/dL (30-160); Percent Iron Saturation 4 % (15-50); Total Iron Binding Capacity 536 mcg/dL (228-428); Unsaturated Iron Binding 515 ug/dL
[2021-11-05 15:55] LABS: Ferritin 13 ng/mL (10-122)
== END 2021-11-05 14:08 | disposition home or self-care (01) ==
LOC: HO.LAB 14:07
PROVIDERS: PCP Internal Medicine Sports Medicine; Visit Provider Internal Medicine Sports Medicine
DX: D50.9 Iron deficiency anemia, unspecified (principal)
CPT/HCPCS: 36415; 82728; 83540

== ENCOUNTER 2021-12-03 13:27 | Outpatient (REF) | payer OTHER, SELFPAY ==
[2021-12-03 13:46] LABS: MANUAL DIFF FLAG NO
[2021-12-03 13:51] LABS: Basophils Absolute Auto 0.1 X10*3/uL (0.0-0.2); Basophils Percent Auto 0.7 % (0-2); Eosinophils Absolute Auto 0.2 X10*3/uL (0.0-0.4); Eosinophils Percent Auto 1.7 % (0-4); Hematocrit 39.7 % (37.0-47.0); Hemoglobin 12.6 g/dl (12.0-16.0); Imm Gran Abs Auto 0.02 X10*3/uL (0.00-0.03); Imm Gran Pct Auto 0.2 % (0.0-0.4); Lymphocytes Absolute Auto 3.2 X10*3/uL (1.2-4.9); Lymphocytes Percent Auto 30.7 % (20-40); Mean Corpuscular HGB Conc 31.7 g/dl (31.0-35.0); Mean Corpuscular Hemoglobin 24.8 pg (27.0-33.0); Mean Platelet Volume 8.8 fL (9.4-12.3); Monocytes Absolute Auto 0.8 X10*3/uL (0.1-1.2); Monocytes Percent Auto 8.1 % (2-11); Neutrophils Percent Auto 58.6 % (45-73); Platelet Count 436 X10*3/uL (160-400); Red Blood Count 5.09 X10*6/uL (4.20-5.50); Red Cell Distribution Width 20.7 % (11.0-16.0); White Blood Count 10.3 X10*3/uL (4.8-10.8)
[2021-12-03 14:12] LABS: C Reactive Protein 0.22 mg/dL (< or = 0.50); Iron 31 mcg/dL (30-160); Percent Iron Saturation 7 % (15-50); Total Iron Binding Capacity 429 mcg/dL (228-428); Unsaturated Iron Binding 398 ug/dL
[2021-12-03 14:32] LABS: Ferritin 21 ng/mL (10-122)
[2021-12-03 18:51] LABS: Erythrocyte Sedimentation Rate 4 MM/HR (0-20)
== END 2021-12-03 13:28 | disposition home or self-care (01) ==
LOC: HO.LAB 13:27
PROVIDERS: PCP Internal Medicine Sports Medicine; Visit Provider Internal Medicine Sports Medicine
DX: R59.0 Localized enlarged lymph nodes (principal); R50.9 Fever, unspecified
CPT/HCPCS: 36415; 82728; 83540; 85025; 85652; 86140

== ENCOUNTER 2021-12-05 14:44 | Outpatient (REF) | payer OTHER, SELFPAY ==
--- NOTE | ~2021-12-05 | US_ITS ---
EXAMINATION: US SOFT TISSUE OF THE NECK CLINICAL INFORMATION: Palpable submandibular and submental lymph nodes. COMPARISON: CT soft tissue neck 09/13/2020. TECHNIQUE: Linear transducer grayscale and color Doppler examination of the left neck/submandibular area. FINDINGS: There are 2 submental lymph nodes. These were not appreciated on previous exam. There is a 0.6 x 0.4 x 0.7 cm lymph node which is diffusely hypoechoic with loss of fatty hilum and 1.1 x 0.4 x 0.7 cm lymph node with normal ultrasound morphology. There are 2 left submandibular lymph nodes that measure 1.2 x 0.6 x 1 cm compared to 1.2 x 0.5 x 1.1 cm and 0.9 x 0.7 x 0.8 cm compared to 1 x 0.9 x 0.6 cm. Both lymph nodes demonstrate normal ultrasound morphology and flow and do not appear appreciably changed. There is a third left submandibular lymph node that measures 0.5 x 0.4 x 0.5 cm. This appears diffusely hypoechoic with loss of the fatty hilum. This was not appreciated on previous exam. US/US soft tiss head and/or neck IMPRESSION: Stable appearance to the 2 left submandibular lymph nodes compared to June 2021 exam. There are newly appreciated submental lymph nodes and third small submandibular lymph node compared to June 2021 exam.
== END 2021-12-05 14:45 | disposition home or self-care (01) ==
LOC: HO.US 14:44
PROVIDERS: PCP Internal Medicine Sports Medicine; Visit Provider Internal Medicine Sports Medicine
DX: R59.0 Localized enlarged lymph nodes (principal)
CPT/HCPCS: 76536

== ENCOUNTER 2022-02-05 16:00 | Outpatient (REF) | payer OTHER, SELFPAY ==
[2022-02-05 16:32] LABS: MANUAL DIFF FLAG NO
[2022-02-05 16:34] LABS: Basophils Absolute Auto 0.1 X10*3/uL (0.0-0.2); Basophils Percent Auto 0.8 % (0-2); Eosinophils Absolute Auto 0.4 X10*3/uL (0.0-0.4); Eosinophils Percent Auto 4.8 % (0-4); Hematocrit 41.9 % (37.0-47.0); Hemoglobin 13.4 g/dl (12.0-16.0); Imm Gran Abs Auto 0.03 X10*3/uL (0.00-0.03); Imm Gran Pct Auto 0.3 % (0.0-0.4); Lymphocytes Absolute Auto 2.8 X10*3/uL (1.2-4.9); Lymphocytes Percent Auto 32.3 % (20-40); Mean Corpuscular Volume 81.4 fL (80.0-98.0); Mean Platelet Volume 8.7 fL (9.4-12.3); Monocytes Absolute Auto 0.6 X10*3/uL (0.1-1.2); Monocytes Percent Auto 7.3 % (2-11); Neutrophils Absolute Auto 4.8 x10*3/uL (2.0-8.3); Neutrophils Percent Auto 54.5 % (45-73); Platelet Count 427 X10*3/uL (160-400); Red Blood Count 5.15 X10*6/uL (4.20-5.50); Red Cell Distribution Width 18.4 % (11.0-16.0); White Blood Count 8.8 X10*3/uL (4.8-10.8)
[2022-02-05 16:55] LABS: Iron 53 mcg/dL (30-160); Percent Iron Saturation 12 % (15-50); Total Iron Binding Capacity 443 mcg/dL (228-428); Unsaturated Iron Binding 390 ug/dL
[2022-02-05 17:17] LABS: Ferritin 23 ng/mL (10-122)
[2022-02-08 20:37] LABS: TS Negative Control Passed; TS Panel A 0; TS Panel B 0; TS Positive Control Passed; TSpotTB Negative (Negative)
== END 2022-02-05 16:01 | disposition home or self-care (01) ==
LOC: HO.LAB 16:00
PROVIDERS: PCP Internal Medicine Sports Medicine; Visit Provider Internal Medicine Sports Medicine
DX: D50.9 Iron deficiency anemia, unspecified (principal); Z11.1 Encounter for screening for respiratory tuberculosis
CPT/HCPCS: 36415; 82728; 83540; 85025; 86481

== ENCOUNTER → 2022-02-24 10:44 | Outpatient (BNV) | payer OTHER, SELFPAY | PROVIDERS: PCP Internal Medicine Sports Medicine; Referring Provider Internal Medicine Sports Medicine; Visit Provider Internal Medicine Medical Oncology | DX: R59.0 Localized enlarged lymph nodes (principal) | CPT/HCPCS: 99204; 99213 ==

== ENCOUNTER 2022-03-02 15:27 | Outpatient (REF) | payer OTHER, SELFPAY ==
[2022-03-02 17:16] LABS: Appearance Urine CLEAR; Color Urine STRAW; Glucose Urine UA NEG (NEG); Leukocyte Esterase Urine NEG (NEG); Nitrite Urine NEG (NEG); Specific Gravity - Urine 1.015 (1.005-1.025); Urine Blood 2+ (NEG); Urine Ketones NEG (NEG); Urine Protein NEG (NEG-TRACE)
[2022-03-02 18:43] LABS: RBC Urine 0 /HPF (0); Squamous Epithelial Cell Urine 2+ /LPF; WBC Urine 0-2 /HPF (0-4)
== END 2022-03-02 15:28 | disposition home or self-care (01) ==
LOC: HO.LAB 15:27
PROVIDERS: PCP Internal Medicine Sports Medicine; Visit Provider Internal Medicine Sports Medicine
DX: D50.9 Iron deficiency anemia, unspecified (principal)
CPT/HCPCS: 81001

== ENCOUNTER 2022-03-06 10:50 | Outpatient (REF) | payer OTHER, SELFPAY ==
[2022-03-06 11:11] LABS: OBS Int Ctl Valid YES; OBS1 NEGATIVE (NEGATIVE); OBS2 NEGATIVE (NEGATIVE); OBS3 NEGATIVE (NEGATIVE)
== END 2022-03-06 10:51 | disposition home or self-care (01) ==
LOC: HO.LNP 10:50
PROVIDERS: Visit Provider Internal Medicine Sports Medicine
DX: D50.9 Iron deficiency anemia, unspecified (principal)
CPT/HCPCS: 82270

== ENCOUNTER → 2022-03-20 08:02 | Outpatient (BNVA) | payer OTHER, SELFPAY | PROVIDERS: PCP Internal Medicine Sports Medicine; Visit Provider Internal Medicine | DX: Z13.89 Encounter for screening for other disorder (principal) | CPT/HCPCS: 99202 ==

== ENCOUNTER 2022-03-20 09:03 | Outpatient (REF) | payer OTHER, SELFPAY ==
--- NOTE | ~2022-03-20 | US_ITS ---
EXAMINATION: US SOFT TISSUE NECK CLINICAL INFORMATION: Enlarged neck lymph nodes. COMPARISON: Ultrasound neck for 422. TECHNIQUE: Ultrasound of the neck soft tissues is performed with high- frequency de jesus-scale imaging and color Doppler. FINDINGS: There are multiple lymph nodules in the submandibular and submental mental space. RIGHT NECK: Submandibular lymph nodes. 1. Lymph node measures 1.2 x 0.6 x 0.8 cm They are less echogenic than previous study. 2. Lymph node measures 0.8 x 0.5 x 0.6 cm. They are less echogenic. 3. Lymph node measures 1.3 x 0.6 x 0.8 cm and a has a central central echogenic medulla. 4. Lymph node measures 2.1 x 0.8 x 0.9 cm. It has a central echogenic medulla. Right submental lymph nodes measure 0.6 x 0.4 x 0.5 cm and 0.8 x 0.5 x 0.6 cm and have benign characteristics. LEFT NECK: 1. Lymph node measures 1.5 x 0.6 x 1.1 cm and has a central echogenic medulla and appears benign. 2. Lymph node measures 1.2 x 0.8 x 0.7 cm and has an echogenic medulla and appears benign. 3. Lymph node measures 2.3 x 0.7 x 0.9 cm and has an echogenic medulla and appears benign. US/US soft tiss head and/or neck IMPRESSION: 1. Bilateral neck lymph nodes have benign characteristics by ultrasound. Compared to previous study the left submandibular lymph node measures 1.2 cm previously, now measures 1.5 cm. 2. right neck submental lymph nodes are stable. Compared to previous exam the lymph nodes or less hypoechoic at this time with slight increased central vascularity. There are equivocal.. There are 2 new small right submental lymph nodes seen. 3. Recommend long-term follow-up in 6 months unless there is new palpable lymph node.
== END 2022-03-20 09:04 | disposition home or self-care (01) ==
LOC: HO.US 09:03
PROVIDERS: Visit Provider Internal Medicine Medical Oncology
DX: R59.0 Localized enlarged lymph nodes (principal)
CPT/HCPCS: 76536

== ENCOUNTER → 2022-03-31 13:20 | Outpatient (BNVA) | payer SELFPAY | PROVIDERS: PCP Internal Medicine Sports Medicine | DX: Z13.89 Encounter for screening for other disorder (principal) | CPT/HCPCS: 99213 ==

== ENCOUNTER 2022-04-06 14:16 | Outpatient (REF) | payer OTHER, SELFPAY ==
[2022-04-06 16:31] LABS: MANUAL DIFF FLAG NO
[2022-04-06 17:46] LABS: Basophils Absolute Auto 0.1 X10*3/uL (0.0-0.2); Basophils Percent Auto 0.6 % (0-2); Eosinophils Absolute Auto 0.2 X10*3/uL (0.0-0.4); Eosinophils Percent Auto 2.2 % (0-4); Hematocrit 42.7 % (37.0-47.0); Hemoglobin 13.9 g/dl (12.0-16.0); Imm Gran Abs Auto 0.02 X10*3/uL (0.00-0.03); Imm Gran Pct Auto 0.3 % (0.0-0.4); Lymphocytes Absolute Auto 2.8 X10*3/uL (1.2-4.9); Lymphocytes Percent Auto 35.2 % (20-40); Mean Corpuscular HGB Conc 32.6 g/dl (31.0-35.0); Mean Corpuscular Hemoglobin 27.4 pg (27.0-33.0); Mean Corpuscular Volume 84.1 fL (80.0-98.0); Mean Platelet Volume 8.6 fL (9.4-12.3); Monocytes Absolute Auto 0.5 X10*3/uL (0.1-1.2); Monocytes Percent Auto 6.2 % (2-11); Neutrophils Absolute Auto 4.4 x10*3/uL (2.0-8.3); Neutrophils Percent Auto 55.5 % (45-73); Platelet Count 439 X10*3/uL (160-400); Red Blood Count 5.08 X10*6/uL (4.20-5.50); Red Cell Distribution Width 14.3 % (11.0-16.0); White Blood Count 7.9 X10*3/uL (4.8-10.8)
[2022-04-06 18:35] LABS: Vitamin D 25-OH Total 25.8 ng/mL (>30)
[2022-04-11 19:37] LABS: Testosterone, Free 20.8 pg/mL (0.1-6.4); Testosterone, Total 138 ng/dL (2-45)
== END 2022-04-06 14:17 | disposition home or self-care (01) ==
LOC: HO.LAB 14:16
PROVIDERS: Absent Provider Internal Medicine Sports Medicine; PCP Internal Medicine Sports Medicine; Visit Provider Pediatrics Pediatric Endocrinology
DX: F64.9 Gender identity disorder, unspecified (principal); F64.0 Transsexualism; Z13.21 Encounter for screening for nutritional disorder
CPT/HCPCS: 36415; 82306; 84402; 84403; 85025

== ENCOUNTER 2022-04-20 12:34 | Emergency (ER) | payer OTHER, SELFPAY | END 2022-04-20 13:31 | disposition left against medical advice (07) | PROVIDERS: Emergency Provider Emergency Medicine; PCP Internal Medicine Sports Medicine | DX: R10.10 Upper abdominal pain, unspecified (principal); R11.10 Vomiting, unspecified ==

== ENCOUNTER → 2022-04-21 13:34 | Outpatient (BNVA) | payer OTHER, SELFPAY | PROVIDERS: PCP Internal Medicine Sports Medicine; Visit Provider Internal Medicine | DX: Z13.89 Encounter for screening for other disorder (principal) | CPT/HCPCS: 99213 ==

== ENCOUNTER 2022-05-08 13:00 | Outpatient (RCR) | payer OTHER, SELFPAY ==
--- NOTE | 2022-04-10 15:29 | MHC.PT.EP ---
[facility] [place] Office [place] Office [place] Office [address] Luke Kraft [address] [phone] F: [phone] F: [phone] F: [phone] F: [phone] Physical Therapy Plan of Care Date of Evaluation: Date of Surgery: Diagnosis: LUMBAR STRAIN Assessment: 27 YO REF TO PT FOR LUMBAR STRAIN SUSTAINED WHILE ASSISTING A Pt TRANSFERRING WC-> MRI TABLE ON 03/18/22. 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 OBJECTIVELY, Pt HAS DECR HIP FLEXIBILITY, INCR SOFT TISSUE TENSION/ TIGHTNESS IN THORACOLUMBAR PS MM/ POSTERIOR CHAIN, AND DECR POSTURAL AWARENESS. FUNCTIONALLY, Pt HABITUALLY FLEXES AT THE WAIST, DECR SITTING TOLERANCE > 30 MIN, AND UNABLE TO PERFROM REGULAR WORKOUTS DUE TO SORENESS. Pt NOTES PRIOR THORACIC PAIN AND DISC INVOLVEMENT T12/L1 WITH SX RESOLUTION IN 2020. THE SXS CURRENTLY APPEAR TO BE SOFT TISSUEIN NATURE . Pt WOULD BENEFIT FROM PT TO ADDRESS THE ABOVE FINDINGS , PAIN MGMT, SOFT TISSUE MOB, AND DEV A PROGRESSIVE HEP/ SELF-SX MGMT PROGRAM. 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 Manual therapy to restore motion and function. Therapeutic exercise to improve strength and flexibility. Neuromuscular re-education for posture and balance. Therapeutic activities to return to functional activities of daily living. Electronically signed by: Nguyen Flores,PT Please sign and return to therapist. Thank you for your referral.
--- NOTE | 2022-05-08 14:10 | MHC.PT.DC ---
[facility] Office [place] Office [place] Office [address] Luke Kraft [address] [phone] F: [phone] F: [phone] F: [phone] F: [phone] Physical Therapy Discharge Report Diagnosis: LUMBAR STRAIN Date of Surgery: Date of Evaluation: 04/10/22 Date of Discharge: 05/08/22 Treatments to Date: 7 Cancellations to Date: No Shows to Date: Discharge Status: Achieved Goals Improved Function Independent with HEP Discharge Summary: Pt HAS PROGRESSED NICELY IN PT- HE HAS MET HIS PT GOALS-> INDEP W HEP, IMPROVED POSTURE/ BODY MECH AWARENESS, AND HIS PAIN IS RELATIVELY RESOLVED. Electronically signed by: Nguyen Flores,PT Please sign and return to therapist. Thank you for your referral.
== END 2022-05-08 14:11 | disposition home or self-care (01) ==
LOC: HO.PT 13:00
PROVIDERS: Visit Provider Physician Assistant Medical
DX: S39.012D Strain of muscle, fascia and tendon of lower back, subsequent encounter (principal)
CPT/HCPCS: 97110; 97140; 97161; 97530

== ENCOUNTER 2022-05-21 14:32 | Outpatient (REF) | payer OTHER, SELFPAY ==
[2022-05-21 16:06] LABS: MANUAL DIFF FLAG NO
[2022-05-21 16:51] LABS: Basophils Absolute Auto 0.1 X10*3/uL (0.0-0.2); Basophils Percent Auto 0.7 % (0-2); Eosinophils Absolute Auto 0.1 X10*3/uL (0.0-0.4); Eosinophils Percent Auto 1.3 % (0-4); Hemoglobin 14.1 g/dl (12.0-16.0); Imm Gran Abs Auto 0.01 X10*3/uL (0.00-0.03); Imm Gran Pct Auto 0.1 % (0.0-0.4); Lymphocytes Absolute Auto 2.7 X10*3/uL (1.2-4.9); Lymphocytes Percent Auto 29.9 % (20-40); Mean Corpuscular HGB Conc 32.8 g/dl (31.0-35.0); Mean Corpuscular Hemoglobin 27.5 pg (27.0-33.0); Mean Corpuscular Volume 83.8 fL (80.0-98.0); Mean Platelet Volume 9.1 fL (9.4-12.3); Monocytes Absolute Auto 0.5 X10*3/uL (0.1-1.2); Monocytes Percent Auto 5.8 % (2-11); Neutrophils Absolute Auto 5.6 x10*3/uL (2.0-8.3); Neutrophils Percent Auto 62.2 % (45-73); Platelet Count 420 X10*3/uL (160-400); Red Blood Count 5.13 X10*6/uL (4.20-5.50); Red Cell Distribution Width 12.7 % (11.0-16.0); White Blood Count 8.9 X10*3/uL (4.8-10.8)
[2022-05-21 17:27] LABS: Alanine Aminotransferase 14 U/L (0-31); Albumin Level 4.7 g/dL (3.5-5.0); Alkaline Phosphatase 61 U/L (39-117); Anion Gap 15 (12-20); Aspartate Amino Transferase 18 U/L (5-31); Bilirubin Total 0.4 mg/dL (0.0-1.0); Blood Urea Nitrogen 9 mg/dL (9-16); Calcium 10.2 mg/dL (8.4-10.2); Carbon Dioxide 28 mmol/L (22-29); Chloride 103 mmol/L (96-108); Estimated Glomerular Filt Rate > 60; Glucose Random 77 mg/dL (60-115); Lactate Dehydrogenase 154 U/L (122-220); Potassium 4.7 mmol/L (3.3-5.1); Sodium 141 mmol/L (135-145); Total Protein 7.4 g/dL (6.5-8.0)
[2022-05-21 17:40] LABS: Ferritin 16 ng/mL (10-122)
== END 2022-05-21 14:33 | disposition home or self-care (01) ==
LOC: HO.LAB 14:32
PROVIDERS: Absent Provider Internal Medicine Endocrinology, Diabetes & Metabolism; Visit Provider Internal Medicine Medical Oncology
DX: R59.0 Localized enlarged lymph nodes (principal); F64.0 Transsexualism
CPT/HCPCS: 36415; 80053; 82728; 83615; 85025

== ENCOUNTER → 2022-05-21 14:52 | Outpatient (BNVA) | payer OTHER, SELFPAY | PROVIDERS: PCP Internal Medicine Sports Medicine; Visit Provider Internal Medicine | DX: Z13.89 Encounter for screening for other disorder (principal) | CPT/HCPCS: 36415; 80061; 82670; 83001; 83002; 83721; 84403; 99213 ==

== ENCOUNTER 2022-05-22 18:50 | Outpatient (REF) | payer OTHER, SELFPAY ==
--- NOTE | ~2022-05-22 | MR_ITS ---
EXAMINATION: MR LUMBAR SPINE WITHOUT CONTRAST CLINICAL INFORMATION: Back pain (L1-L2 area). Complete physical therapy 2 months. Not better. COMPARISON: None TECHNIQUE: MRI of the lumbar spine was obtained using routine sequences without contrast. FINDINGS: The lumbar vertebral bodies maintain normal heights and alignment. There is mild disc height loss at T11-T12 and T12-L1. There is no bone marrow edema. The distal spinal cord appears normal. The conus medullaris terminates normally at the L1 level. The extraspinal soft tissues appear normal. SPINAL LEVELS: T12-L1: Right subarticular protrusion. No spinal canal or neural foraminal stenosis. L1-L2: No posterior disc abnormality. No spinal canal or neural foraminal stenosis. L2-L3: No posterior disc abnormality. No spinal canal or neural foraminal stenosis. L3-L4: No posterior disc abnormality. No spinal canal or neural foraminal stenosis. L4-L5: Mild disc bulging with mild facet arthropathy. No spinal canal or neural foraminal stenosis. L5-S1: No posterior disc abnormality. Mild facet arthropathy. No spinal canal or neural foraminal stenosis. MR/MR lumbar spine wo con IMPRESSION: No spinal canal stenosis or nerve root compression identified. At T12-L1 there is right subarticular protrusion but no spinal canal stenosis. No disc herniation is seen at the L1-L2 level.
== END 2022-05-22 18:51 | disposition home or self-care (01) ==
LOC: HO.MRI 18:50
PROVIDERS: Visit Provider Internal Medicine
DX: M54.50 Low back pain, unspecified (principal)
CPT/HCPCS: 72148

== ENCOUNTER 2022-08-21 16:07 | Outpatient (REF) | payer OTHER, SELFPAY ==
[2022-08-21 16:25] LABS: MANUAL DIFF FLAG NO
[2022-08-21 16:43] LABS: Basophils Absolute Auto 0.1 X10*3/uL (0.0-0.2); Basophils Percent Auto 0.7 % (0-2); Eosinophils Absolute Auto 0.2 X10*3/uL (0.0-0.4); Eosinophils Percent Auto 2.3 % (0-4); Hematocrit 42.2 % (37.0-47.0); Hemoglobin 13.7 g/dl (12.0-16.0); Imm Gran Abs Auto 0.02 X10*3/uL (0.00-0.03); Imm Gran Pct Auto 0.2 % (0.0-0.4); Lymphocytes Absolute Auto 3.1 X10*3/uL (1.2-4.9); Lymphocytes Percent Auto 33.3 % (20-40); Mean Corpuscular HGB Conc 32.5 g/dl (31.0-35.0); Mean Corpuscular Hemoglobin 27.3 pg (27.0-33.0); Mean Corpuscular Volume 84.2 fL (80.0-98.0); Mean Platelet Volume 8.8 fL (9.4-12.3); Monocytes Absolute Auto 0.6 X10*3/uL (0.1-1.2); Monocytes Percent Auto 6.8 % (2-11); Neutrophils Absolute Auto 5.3 x10*3/uL (2.0-8.3); Neutrophils Percent Auto 56.7 % (45-73); Platelet Count 472 X10*3/uL (160-400); Red Blood Count 5.01 X10*6/uL (4.20-5.50); Red Cell Distribution Width 12.9 % (11.0-16.0); White Blood Count 9.4 X10*3/uL (4.8-10.8)
[2022-08-21 17:08] LABS: Alanine Aminotransferase 24 U/L (0-31); Albumin Level 4.6 g/dL (3.5-5.0); Alkaline Phosphatase 66 U/L (39-117); Anion Gap 11 (12-20); Aspartate Amino Transferase 22 U/L (5-31); Bilirubin Total 0.5 mg/dL (0.0-1.0); Blood Urea Nitrogen 14 mg/dL (9-16); Calcium 10.1 mg/dL (8.4-10.2); Carbon Dioxide 26 mmol/L (22-29); Chloride 106 mmol/L (96-108); Estimated Glomerular Filt Rate > 60; Glucose Random 90 mg/dL (60-115); Potassium 4.1 mmol/L (3.3-5.1); Sodium 139 mmol/L (135-145); Total Protein 7.2 g/dL (6.5-8.0)
[2022-08-29 03:33] LABS: Estradiol Free 0.53 pg/mL; Estradiol, Ultrasensitive 31 pg/mL
[2022-08-29 14:48] LABS: Testosterone, Free 53.5 pg/mL (0.1-6.4); Testosterone, Total 377 ng/dL (2-45)
== END 2022-08-21 16:08 | disposition home or self-care (01) ==
LOC: HO.LAB 16:07
PROVIDERS: PCP Internal Medicine Sports Medicine; Visit Provider Internal Medicine Endocrinology, Diabetes & Metabolism
DX: F64.0 Transsexualism (principal)
CPT/HCPCS: 36415; 80053; 82670; 82681; 84402; 84403; 85025

== ENCOUNTER 2022-08-28 15:26 | Outpatient (REF) | payer OTHER, SELFPAY ==
--- NOTE | ~2022-08-28 | US_ITS ---
EXAMINATION: US SOFT TISSUE NECK CLINICAL INFORMATION: There are bilateral cervical lymphadenopathy. COMPARISON: Ultrasound 03/20/2022 TECHNIQUE: Ultrasound of the neck soft tissues is performed with high- frequency de jesus-scale imaging and color Doppler. FINDINGS: RIGHT NECK SOFT TISSUES: Scattered architecturally normal nodes are present in the submandibular space. The nodes show normal fatty hilus, normal cortical thickness, and no cystic change or calcification. No abnormal color flow. The largest nodes are as follows: There are of 4 submandibular lymph nodes. 1. No measures 1.0 x 0.6 x 0.9 cm. Previously measured 1.3 x 0.6 x 0.8 cm. 2. No measures 0.9 x 0.9 x 1.1 cm. Previously measured 1.2 x 0.6 x 0.8 cm. 3. Node measures 0.6 x 0.7 x 0.7 cm. Previously measured 0.8 x 0.5 x 0.6 cm. 4. Node measures 1.5 x 0.9 x 1.1 cm previously measured 2.1 x 0.8 x 0.9 seen. All of these lymph nodes have benign characteristics. Submental 1 a lymph nodes measure 0.5 x 0.4 x 0.5 cm previously measured 0.8 x 0.5 x 0.6 seen. No measures 0.6 x 0.3 x 0.5 cm previously measured 0.6 x 0.4 x 0.5 cm. LEFT NECK SOFT TISSUES: Scattered architecturally normal nodes are present in the submental space. The nodes show normal fatty hilus, normal cortical thickness, and no cystic change or calcification. No abnormal color flow. The largest nodes are as follows: 1. Note measures 1.2 x 0.6 x 1.1 cm. Previously measured 1.5 x 0.6 x 1.1 cm. 2. Node measures 2.1 x 0.8 x 1.0 cm. Previously measured 2.3 x 0.7 x 0.9 seen. 3. Note measures 1.2 x 0.7 x 0.7 seen. Previously measured 1.2 x 0.8 x 0.7 seen. US/US soft tiss head and/or neck IMPRESSION: 1. Bilateral neck lymph nodes in the submandibular region as described above have benign characteristics and show no major change but slight improvement. 2. Recommend follow-up in a year unless patient feels increasing palpable lymph node..
== END 2022-08-28 15:27 | disposition home or self-care (01) ==
LOC: HO.US 15:26
PROVIDERS: Visit Provider Internal Medicine Sports Medicine
DX: R59.0 Localized enlarged lymph nodes (principal)
CPT/HCPCS: 76536

== ENCOUNTER 2022-11-13 14:18 | Outpatient (REF) | payer OTHER, SELFPAY ==
[2022-11-13 16:11] LABS: Alanine Aminotransferase 20 U/L (0-31); Anion Gap 11 (12-20); Aspartate Amino Transferase 22 U/L (5-31); Bilirubin Direct 0.2 mg/dL (0.0-0.5); Bilirubin Total 0.8 mg/dL (0.0-1.0); Blood Urea Nitrogen 14 mg/dL (9-16); Calcium 9.5 mg/dL (8.4-10.2); Carbon Dioxide 29 mmol/L (22-29); Chloride 105 mmol/L (96-108); Estimated Glomerular Filt Rate > 60; Glucose Random 87 mg/dL (60-115); Potassium 4.6 mmol/L (3.3-5.1); Sodium 140 mmol/L (135-145)
== END 2022-11-13 14:19 | disposition home or self-care (01) ==
LOC: HO.LAB 14:18
PROVIDERS: PCP Internal Medicine Sports Medicine; Visit Provider Nurse Practitioner Family
DX: R10.11 Right upper quadrant pain (principal)
CPT/HCPCS: 36415; 80048; 82247; 82248; 84450; 84460

== ENCOUNTER 2022-11-17 11:59 | Outpatient (REF) | payer OTHER, SELFPAY ==
--- NOTE | ~2022-11-17 | US_ITS ---
EXAMINATION: US ABDOMEN LIMITED CLINICAL INFORMATION: Right upper quadrant pain. COMPARISON: None TECHNIQUE: Real-time imaging of the right upper quadrant abdominal viscera. FINDINGS: PANCREAS: Normal. LIVER: Normal. The liver is normal in size. The liver contour is normal. Parenchymal echogenicity is normal. No focal hepatic lesion. There is no intrahepatic biliary duct dilatation seen. GALLBLADDER: Normal. The gallbladder is physiologically distended without evidence of stones, sludge, polyps, wall thickening or pericholecystic fluid. COMMON BILE DUCT: Normal in caliber measuring 0.3 cm in diameter. RIGHT KIDNEY: Normal. No hydronephrosis. No renal calculi or focal parenchymal lesions. The kidney measures 8.2 cm in maximum dimension. FREE FLUID: None. ADDITIONAL FINDINGS: Corresponding to patient indicated site of palpable lump is a focal soft tissue protrusion in the right upper quadrant subcutaneous fat, isoechoic to the adjacent fat with some vascularity. US/US abdomen limited IMPRESSION: Corresponding to patient indicated site of palpable lump is a focal soft tissue protrusion in the right upper quadrant subcutaneous fat, isoechoic to the adjacent fat with some vascularity. Findings may reflect a lipoma, however given vascularity consider MRI for further evaluation..
== END 2022-11-17 12:00 | disposition home or self-care (01) ==
LOC: HO.US 11:59
PROVIDERS: PCP Internal Medicine Sports Medicine; Visit Provider Nurse Practitioner Family
DX: R10.11 Right upper quadrant pain (principal)
CPT/HCPCS: 76705

== ENCOUNTER 2023-01-01 13:03 | Outpatient (REF) | payer OTHER, SELFPAY ==
--- NOTE | ~2023-01-01 | MR_ITS ---
EXAMINATION: MR CHEST WITHOUT AND WITH CONTRAST CLINICAL INFORMATION: Right anterior rib pain and palpable lump COMPARISON: Ultrasound dated 11/17/2022 TECHNIQUE: Multiplanar, multi sequential MRI examination of the lower chest/upper abdomen was performed with sequences acquired before and after the administration of 7 mL Gadavist FINDINGS: A fiducial marker is present along the anterior right lower hemithorax. The underlying subcutaneous fat, chest wall musculature ribs costochondral junctions and costal cartilage are unremarkable on the basis of MRI. Please note that the finding on ultrasound was is at most 4 mm in maximal dimension. Imaged thoracic viscera unremarkable. Imaged abdominal viscera is normal. No marrow signal abnormalities. MR/MR chest wo/w con IMPRESSION: No discrete abnormality identified along the right anterior chest wall where the patient reports a palpable finding. On ultrasound, there was a questionable tiny potentially solid lesion. If there is concern for malignancy, consider ultrasound-guided biopsy.
== END 2023-01-01 13:04 | disposition home or self-care (01) ==
LOC: HO.MRI 13:03
PROVIDERS: PCP Internal Medicine Sports Medicine; Visit Provider Internal Medicine Sports Medicine
DX: R22.9 Localized swelling, mass and lump, unspecified (principal)
CPT/HCPCS: 71552; A9585

== ENCOUNTER 2023-01-25 15:49 | Outpatient (REF) | payer OTHER, SELFPAY ==
[2023-01-25 17:54] LABS: Hematocrit 42.4 % (37.0-47.0); Hemoglobin 13.7 g/dl (12.0-16.0)
[2023-01-25 18:31] LABS: Cholesterol 162 mg/dL; HDL Cholesterol 48 mg/dL; LDL Cholesterol Calculated 92 mg/dl; Triglycerides 113 mg/dL
[2023-01-25 18:48] LABS: Free T4 (Free Thyroxine) 1.03 ng/dL (0.71-1.85); Thyroid Stimulating Hormone 0.71 uIU/mL (0.32-4.0)
[2023-01-27 04:12] LABS: Syphilis Screen Nonreactive (Nonreactive)
[2023-01-27 04:29] LABS: HBsAGNum1 0.22 S/CO (0.00-0.99); HIV AB/AG Nonreactive (Nonreactive); HIV Num 1 0.06 S/CO (0.00-0.99); Hepatitis B Surface Antigen Negative (Negative); ~HepC Num1 0.46 S/CO (0.00-0.79); ~Hepatitis C Antibody Nonreactive (Nonreactive)
[2023-01-27 05:04] LABS: Follicle Stimulating Hormone 9.5 mIU/mL; Lutenizing Hormone 18.1 mIU/mL; Prolactin 9.7 ng/mL
[2023-01-28 04:09] LABS: TS Negative Control Passed; TS Panel A 2; TS Panel B 0; TS Positive Control Passed; TSpotTB Negative (Negative)
[2023-01-29 17:53] LABS: Anti-Mullerian Hormone-Female 4.56 ng/mL (0.69-13.39)
[2023-02-02 16:24] LABS: Testosterone, Free 59.7 pg/mL (0.1-6.4); Testosterone, Total 347 ng/dL (2-45)
[2023-02-04 05:23] LABS: Estradiol Free 0.76 pg/mL; Estradiol, Ultrasensitive 37 pg/mL
== END 2023-01-25 15:50 | disposition home or self-care (01) ==
LOC: HO.LAB 15:49
PROVIDERS: PCP Internal Medicine Sports Medicine; Visit Provider Internal Medicine Sports Medicine
DX: Z31.49 Encounter for other procreative investigation and testing (principal); Z11.9 Encounter for screening for infectious and parasitic diseases, unspecified; Z11.1 Encounter for screening for respiratory tuberculosis; F64.0 Transsexualism; Z20.2 Contact with and (suspected) exposure to infections with a predominantly sexual mode of transmission
CPT/HCPCS: 36415; 80061; 82397; 82670; 82681; 83001; 83002; 84146; 84402; 84403; 84439; 84443; 85014; 85018; 86481; 86780; 86803; 87340; 87389

== ENCOUNTER 2023-02-13 10:14 | Outpatient (REF) | payer OTHER, SELFPAY ==
--- NOTE | ~2023-02-13 | US_ITS ---
EXAMINATION: US ABDOMEN COMPLETE CLINICAL INFORMATION: Right upper quadrant pain. COMPARISON: Ultrasound abdomen limited 11/17/2022. TECHNIQUE: Real-time imaging of the abdominal viscera. FINDINGS: PANCREAS: Normal. ABDOMINAL AORTA: The proximal, mid, and distal segments are normal in caliber. INFERIOR VENA CAVA: Visualized portions are normal. LIVER: Normal. The liver is normal in size. The liver contour is normal. Parenchymal echogenicity is normal. No focal hepatic lesion. There is no intrahepatic biliary duct dilatation seen. GALLBLADDER: Normal. The gallbladder is physiologically distended without evidence of stones, sludge, polyps, wall thickening or pericholecystic fluid. COMMON BILE DUCT: Normal in caliber measuring 0.3 cm in diameter. RIGHT KIDNEY: Normal. No hydronephrosis. No renal calculi or focal parenchymal lesions. The kidney measures 9.9 cm in maximum dimension. LEFT KIDNEY: Normal. No hydronephrosis. No renal calculi or focal parenchymal lesions. The kidney measures 10.2 cm in maximum dimension. SPLEEN: Normal. The spleen measures 8.4 cm in maximum dimension. FREE FLUID: None. ADDITIONAL FINDINGS: The previously seen soft tissue palpable lump in the right upper quadrant which had the same echogenicity as the surrounding fat is not seen on the current exam US/US abdomen complete IMPRESSION: Negative exam. A cause for the patient's abdominal pain has not been found.
== END 2023-02-13 10:15 | disposition home or self-care (01) ==
LOC: HO.US 10:14
PROVIDERS: PCP Internal Medicine Sports Medicine; Visit Provider Nurse Practitioner Family
DX: R10.11 Right upper quadrant pain (principal)
CPT/HCPCS: 76700

== ENCOUNTER 2023-04-05 16:01 | Outpatient (REF) | payer OTHER, SELFPAY ==
--- NOTE | ~2023-04-05 | XR_ITS ---
EXAMINATION: XR ABDOMEN KUB CLINICAL INDICATION: Right upper quadrant abdominal pain after meals, constipation, stool burden COMPARISON: None available. TECHNIQUE: AP view of the abdomen. FINDINGS: Small to moderate colonic stool burden. No abnormal small or large bowel distention. No abnormal rectal stool burden. No acute osseous abnormalities or abnormal calcifications are seen. XR/XR abdomen 1V IMPRESSION: Small to moderate colonic stool burden. No abnormal rectal stool burden.
== END 2023-04-05 16:02 | disposition home or self-care (01) ==
LOC: HO.LAB 16:01
PROVIDERS: PCP Internal Medicine Sports Medicine; Visit Provider Internal Medicine Sports Medicine
DX: R10.11 Right upper quadrant pain (principal)
CPT/HCPCS: 74018

== ENCOUNTER 2023-08-27 08:28 | Outpatient (REF) | payer OTHER, SELFPAY ==
--- NOTE | ~2023-08-27 | US_ITS ---
EXAMINATION: US ABDOMEN LIMITED CLINICAL INFORMATION: Right upper quadrant pain. COMPARISON: X-ray KUB 04/05/2023. Ultrasound abdomen complete 02/13/2023. Ultrasound abdomen limited 11/17/2022. TECHNIQUE: Real-time imaging of the right upper quadrant abdominal viscera. FINDINGS: PANCREAS: Tail obscured. LIVER: The liver is normal in size. The liver contour is normal. Parenchymal echogenicity is normal. No focal hepatic lesion. There is no intrahepatic biliary duct dilatation seen. GALLBLADDER: The gallbladder is physiologically distended without evidence of stones, sludge, polyps, wall thickening or pericholecystic fluid. COMMON BILE DUCT: Normal in caliber measuring 0.2 cm in diameter. RIGHT KIDNEY: No hydronephrosis. No renal calculi or focal parenchymal lesions. The kidney measures 9.0 cm in maximum dimension. FREE FLUID: None. ADDITIONAL FINDINGS: At the area of concern sonographic interrogation was performed. There is slight focal discontinuity of the abdominal wall measuring 0.7 cm with focal protrusion of intra-abdominal fat. US/US abdomen limited IMPRESSION: Possible small herniation of intra-abdominal fat at the site of concern. The decision to follow the area of concern should be based on the clinical assessment. If clinically indicated further cross-sectional imaging could be performed.
== END 2023-08-27 08:29 | disposition home or self-care (01) ==
LOC: HO.US 08:28
PROVIDERS: PCP Internal Medicine Sports Medicine; Visit Provider Internal Medicine Sports Medicine
DX: R10.11 Right upper quadrant pain (principal)
CPT/HCPCS: 76705

== ENCOUNTER 2023-09-07 12:51 | Outpatient (REF) | payer OTHER, SELFPAY | END 2023-09-07 12:52 | disposition home or self-care (01) | LOC: HO.US 12:51 | PROVIDERS: PCP Internal Medicine Sports Medicine; Visit Provider Internal Medicine Sports Medicine | DX: R59.0 Localized enlarged lymph nodes (principal) | CPT/HCPCS: 76536 ==

== ENCOUNTER 2023-09-22 09:28 | Outpatient (AMB) | payer OTHER, SELFPAY ==
--- NOTE | 2023-09-22 09:32 | A.OFFVIS_ITS ---
Intake Vital Signs 09/22/23 09:39 Height 5 ft 5 in Weight 172 lb BMI 28.6 BP 127/69 Blood Pressure Location Rt brachial Position Sitting Pulse 108 H Intake Visit Reasons: poss small hernia RUQ per u/s Intake Note: This patient presents for an assessment for RUQ lipoma vs possible small hernia. Patient c/o; reports RUQ pain, palpable when standing upright. 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 He says that he is noticed this for several months. He actually points to the area of the lower ribcage The patient has had an ultrasound past because of chronic right upper quadrant pain. There was note of a question of a hernia on the right upper quadrant so he was referred to me. He also is being seen by Dr. Frausto because of enlarged neck lymph nodes. He denies any weight loss. He has good oral intake. He denies any fever or night sweats. PFSH Medical History Abdominal pain, chronic, right upper quadrant Surgical History H/O mastectomy History of tonsillectomy Family History Maternal Grandmother Cervical cancer Maternal Grandmother Breast cancer Paternal Grandmother Cancer Social History Household Members: Spouse Housing: Apartment Are you a primary lawn care worker to a significant other at home: No Do you presently have visiting nurse or other home services: No Alcohol intake: current Alcohol intake frequency: holidays/special occasions only Alcohol type: beer and wine Patient Tobacco Use Status: Never used Tobacco Second Hand Smoke Exposure: No service: No Current occupational status: employed Review of Systems Const Denies chills and Denies fever(s) Card Denies chest pain, Denies dyspnea and Denies dyspnea on exertion Resp Denies cough, Denies dyspnea and Denies dyspnea on exertion GI Denies hematochezia and Denies change in bowel habits Denies hematuria and Denies difficulty urinating Musc Denies back pain and Denies limited range of motion Neuro Denies focal weakness and Denies convulsions Psych Denies depression and Denies mood swings Physical Exam Vital Signs: Last Vital Signs Pulse 108 H 09/22/23 09:39 BP 127/69 09/22/23 09:39 BMI result Body Mass Index 28.6 Const General: comfortable and no acute distress Orientation/consciousness: patient oriented x3 Neck Other: Palpable lymph node on the left submandibular area Neck: Yes no lymphadenopathy Chest Other: On the right lower ribcage is note of a small mobile mass, about 1 cm in diameter Resp Auscultation: clear to auscultation bilaterally Cardio Rhythm: regular rhythm GI Other: No palpable hernias Palpation (GI): Soft to palpation, nontender and no guarding Neuro General: patient oriented x3 Assessment & Plan Assessment & Plan (1) Abdominal pain, chronic, right upper quadrant: Code(s): R10.11 - Right upper quadrant pain; G89.29 - Other chronic pain Plan: He has had chronic right upper quadrant pain. His ultrasound does not reveal any significant pathology. There was note of a question of a small hernia However, there is no hernia seen on exam. He does have what appears to be a small subcutaneous cyst or a lipoma on the lower ribcage In view of his chronic right upper quadrant pain, I am going to order for a CAT scan of the abdomen and pelvis with IV contrast . He is scheduled by Dr. Frausto for a CT scan of the neck as well so we will coordinate this with Radiology I will see him in the office after his CAT scan. Orders: Orders CT abdomen pelvis w IV con Today G89.29 - Other chronic pain, R10.11 - Right upper quadrant pain Coding Level of Care Code New Pt Level 3 (19862) Diagnoses Abdominal pain, chronic, right upper quadrant R10.11; G89.29
[2023-09-22 09:39] VITALS: BP 127/69; PULSE 108; BMI 28.6
== END 2023-09-22 10:18 | disposition home or self-care (01) ==
PROVIDERS: PCP Internal Medicine Sports Medicine; Visit Provider Surgery
DX: R10.11 Right upper quadrant pain (principal); G89.29 Other chronic pain
CPT/HCPCS: 99203

== ENCOUNTER → 2023-09-22 09:28 | Outpatient (BNVA) | payer OTHER, SELFPAY | PROVIDERS: PCP Internal Medicine Sports Medicine; Visit Provider Surgery ==

== ENCOUNTER 2023-10-04 14:34 | Outpatient (REF) | payer OTHER, SELFPAY ==
--- NOTE | ~2023-10-04 | CT_ITS ---
EXAMINATION: CT SOFT TISSUE NECK WITH CONTRAST CLINICAL INFORMATION: Cervical adenopathy. COMPARISON: Neck ultrasound 09/07/2023 TECHNIQUE: Following the administration of 100 mL of Omnipaque 300 intravenous contrast, helical imaging was performed in the axial plane with generation of coronal and sagittal reformatted images. This CT examination was performed using dose optimization techniques as appropriate, variously including the following: *Automated exposure control *Adjustment of mA and/or kV according to patient size (this includes techniques or standardized protocols for targeted exams where dose is matched to indication/reason for exam; i.e. extremities or head) *Use of iterative reconstruction technique DLP: 1068 mGy-cm FINDINGS: The nasopharynx appears normal. The palatine tonsils and base of tongue appear normal. No oral cavity lesion is seen. The laryngeal contours appear normal. The vocal folds are symmetric. No enlarged cervical chain lymph nodes are seen. The parotid and submandibular glands appear normal. The thyroid gland appears normal. There are no enlarged upper mediastinal lymph nodes. A small amount of residual thymic tissue is present within the anterior mediastinum. The major neck vessels are patent. The upper lungs are clear. The cervical spine is intact without degenerative changes. No intracranial abnormality is seen. CT/CT soft tissue neck w IV con IMPRESSION: No mass or lymphadenopathy in the neck.
--- NOTE | ~2023-10-04 | CT_ITS ---
EXAMINATION: CT ABDOMEN AND PELVIS WITH CONTRAST CLINICAL INFORMATION: Right upper quadrant pain. COMPARISON: Abdominal ultrasound 08/27/2023. TECHNIQUE: Multidetector volumetric images were obtained from the superior aspect of the liver through the pubic symphysis following administration 85 mL of Omnipaque 350 intravenous contrast. Sagittal and coronal reformatted images were obtained on the technologist's workstation. Oral contrast: No This CT examination was performed using dose optimization techniques as appropriate, variously including the following: *Automated exposure control *Adjustment of mA and/or kV according to patient size (this includes techniques or standardized protocols for targeted exams where dose is matched to indication/reason for exam; i.e. extremities or head) *Use of iterative reconstruction technique DLP: 795 mGy-cm FINDINGS: LUNG BASES: Up to 0.4 cm fissural based nodules along the right minor fissure, favoring to represent lymph nodes, for which no imaging follow-up is recommended. No focal consolidation or pleural effusion. LIVER, GALLBLADDER, AND BILIARY TREE: The liver is normal in size, shape, and attenuation. No focal hepatic lesion or biliary ductal dilatation is present. The gallbladder is unremarkable with no evidence of radiopaque gallstones, gallbladder wall thickening, or obvious pericholecystic inflammatory changes. PANCREAS: Unremarkable. SPLEEN: Unremarkable. ADRENAL GLANDS: Unremarkable. KIDNEYS AND URETERS: The kidneys are normal in size, shape, and attenuation. No hydronephrosis, hydroureter, or calculi seen. No perinephric stranding. BLADDER: Underdistended limiting its evaluation. Equivocal mild diffuse urinary bladder wall thickening. GASTROINTESTINAL TRACT: The stomach and the small bowel are nondilated. Normal appendix. No pericolonic inflammatory changes. No evidence of bowel obstruction. Trace stranding along the root of the small bowel mesentery. Scattered prominent right-sided mesenteric lymph nodes for instance measuring up to 0.8 cm in short axis on axial image 51 series 4. ABDOMINAL WALL: No significant hernia is appreciated. LYMPH NODES: As above, a few prominent prominently right-sided mesenteric lymph nodes are noted. VASCULAR: Unremarkable. PELVIC VISCERA: Unremarkable. OSSEOUS STRUCTURES: Unremarkable. CT/CT abdomen pelvis w IV con IMPRESSION: 1. Trace stranding along the root of the small bowel mesentery with a few prominent right-sided mesenteric lymph nodes. These findings are nonspecific and could be seen in the setting of enteritis/diarrhea or less likely pancreatitis. Recommend clinical correlation. 2. Equivocal mild diffuse urinary bladder wall thickening which could be seen in the setting of cystitis. Correlate with urinalysis. 3. Otherwise, no other acute abnormalities to explain the patient's symptoms.
[2023-10-04] MEDS: iohexoL 350 MG/ML 75 ML INFUS..BTL 85 ML IV (16:31)
== END 2023-10-04 14:35 | disposition home or self-care (01) ==
LOC: HO.CT 14:34
PROVIDERS: PCP Internal Medicine Sports Medicine; Visit Provider Surgery
DX: R10.11 Right upper quadrant pain (principal); G89.29 Other chronic pain; R59.0 Localized enlarged lymph nodes
CPT/HCPCS: 70491; 74177; Q9967

== ENCOUNTER 2023-10-11 11:31 | Outpatient (AMB) | payer OTHER, SELFPAY ==
--- NOTE | 2023-10-11 11:32 | A.OFFVIS_ITS ---
Intake Vital Signs 10/11/23 11:46 Height 5 ft 5 in Weight 172 lb 0.004 oz BMI 28.6 Intake Visit Reasons: Abdominal pain, CT results Intake Note: This patient presents for a follow-up assessment to discuss Ct-Scan results for abdominal pain. Pt c/o; reports no changes at this time. 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 He was thinking that he might have a hernia. His previous ultrasound did not reveal any gallbladder problems I had sent him for a CT scan because of his chronic complaints. He is here to discuss the results. [facility] Medical History Abdominal pain, chronic, right upper quadrant Surgical History H/O mastectomy History of tonsillectomy Family History Maternal Grandmother Cervical cancer Maternal Grandmother Breast cancer Paternal Grandmother Cancer Social History Household Members: Spouse Housing: Apartment Are you a primary client care consultant to a significant other at home: No Do you presently have visiting nurse or other home services: No Alcohol intake: current Alcohol intake frequency: holidays/special occasions only Alcohol type: beer and wine Patient Tobacco Use Status: Never used Tobacco Second Hand Smoke Exposure: No service: No Current occupational status: employed Review of Systems Const Denies chills and Denies fever(s) Card Denies chest pain, Denies dyspnea and Denies dyspnea on exertion Resp Denies cough, Denies dyspnea and Denies dyspnea on exertion GI Denies hematochezia and Denies change in bowel habits Denies hematuria and Denies difficulty urinating Musc Denies back pain and Denies limited range of motion Neuro Denies focal weakness and Denies convulsions Psych Denies depression and Denies mood swings Physical Exam Vital Signs: BMI result Body Mass Index 28.6 Const General: comfortable and no acute distress Orientation/consciousness: patient oriented x3 Neck Neck: Yes no lymphadenopathy Resp Effort & Inspection: normal respiratory effort Cardio Rhythm: regular rhythm GI Other: No palpable mass, no palpable hernia, no tenderness at this time Palpation (GI): Soft to palpation, nontender and no guarding Neuro General: patient oriented x3 Assessment & Plan Assessment & Plan (1) Abdominal pain, chronic, right upper quadrant: Code(s): R10.11 - Right upper quadrant pain; G89.29 - Other chronic pain Plan: I have reviewed his CAT scan. This does not show any hernia on the area. It isn't reveal any pathology in the right upper quadrant. His previous ultrasound was unremarkable I explained to him the above findings. I did tell him that at this time, it does not appear that he has a hernia on this side where he has been having pain. He does state that he feels well today I explained to him that if he has persistent pain or if he feels any mass, he should come back to the office to be re-evaluated He is also being followed by Oncology for lymphadenopathy. Coding Level of Care Code Est Pt Level 3 (60818) Diagnoses Abdominal pain, chronic, right upper quadrant R10.11; G89.29
[2023-10-11 11:46] VITALS: BMI 28.6
== END 2023-10-11 11:54 | disposition home or self-care (01) ==
PROVIDERS: PCP Internal Medicine Sports Medicine; Visit Provider Surgery
DX: R10.11 Right upper quadrant pain (principal); G89.29 Other chronic pain
CPT/HCPCS: 99213

== ENCOUNTER → 2023-10-11 11:31 | Outpatient (BNVA) | payer OTHER, SELFPAY | PROVIDERS: PCP Internal Medicine Sports Medicine; Visit Provider Surgery ==

== ENCOUNTER 2024-07-26 09:46 | Outpatient (REF) | payer OTHER, SELFPAY ==
--- NOTE | ~2024-07-26 | XR_ITS ---
EXAMINATION: XR CHEST CLINICAL INFORMATION: Cough and fever. Question pneumonia. COMPARISON: Chest MRI dated 01/01/2023. TECHNIQUE: 2 views of the chest were obtained. FINDINGS: The lungs are clear. The cardiomediastinal silhouette is normal in size. There is no pleural effusion or pneumothorax. No acute osseous abnormality. XR/XR chest 2V IMPRESSION: No acute cardiopulmonary findings. Electronically signed by: Damien De Leon MD 07/26/2024 11:17 AM [facility]
== END 2024-07-26 09:47 | disposition home or self-care (01) ==
LOC: HO.XRAY 09:46
PROVIDERS: PCP Internal Medicine Sports Medicine; Visit Provider Family Medicine
DX: R05.9 Cough, unspecified (principal)
CPT/HCPCS: 71046

== ENCOUNTER → 2024-08-17 13:24 | Outpatient (BNVA) | payer OTHER, SELFPAY | PROVIDERS: PCP Internal Medicine Sports Medicine; Visit Provider Physician Assistant | DX: Z13.89 Encounter for screening for other disorder (principal) | CPT/HCPCS: 84450; 84460; 85025; 86803; 87389; 99204 ==

== ENCOUNTER 2024-09-01 08:50 | Outpatient (REF) | payer OTHER, SELFPAY ==
[2024-09-01 09:04] LABS: MANUAL DIFF FLAG NO
[2024-09-01 09:42] LABS: Basophils Absolute Auto 0.1 X10*3/uL (0.0-0.2); Basophils Percent Auto 0.7 % (0-2); Eosinophils Absolute Auto 0.2 X10*3/uL (0.0-0.4); Hematocrit 45.8 % (42.0-52.0); Hemoglobin 15.1 g/dl (14.0-18.0); Imm Gran Abs Auto 0.02 X10*3/uL (0.00-0.03); Imm Gran Pct Auto 0.3 % (0.0-0.4); Lymphocytes Absolute Auto 2.5 X10*3/uL (1.2-4.9); Lymphocytes Percent Auto 37.5 % (20-40); Mean Corpuscular Hemoglobin 27.7 pg (27.0-33.0); Mean Corpuscular Volume 83.9 fL (80.0-98.0); Mean Platelet Volume 8.4 fL (9.4-12.4); Monocytes Absolute Auto 0.5 X10*3/uL (0.1-1.2); Monocytes Percent Auto 6.7 % (2-11); Neutrophils Absolute Auto 3.5 x10*3/uL (2.0-8.3); Neutrophils Percent Auto 51.8 % (45-73); Platelet Count 351 X10*3/uL (160-400); Red Blood Count 5.46 X10*6/uL (4.60-5.80); Red Cell Distribution Width 14.2 % (11.0-16.0); White Blood Count 6.7 X10*3/uL (4.8-10.8)
[2024-09-01 10:19] LABS: Iron 110 mcg/dL (45-160); Percent Iron Saturation 32 % (15-50); Total Iron Binding Capacity 346 mcg/dL (228-428); Unsaturated Iron Binding 236 ug/dL
[2024-09-01 10:26] LABS: Ferritin 24 ng/mL (20-250)
[2024-09-04 07:03] LABS: Immunoglobulin A 151 mg/dL (47-310)
[2024-09-05 14:13] LABS: Transglutaminase IgA <1.0 U/mL
== END 2024-09-01 08:51 | disposition home or self-care (01) ==
LOC: HO.LAB 08:50
PROVIDERS: PCP Internal Medicine Sports Medicine; Visit Provider Physician Assistant
DX: R19.7 Diarrhea, unspecified (principal)
CPT/HCPCS: 36415; 82728; 82784; 83540; 85025; 86140; 86364

== ENCOUNTER 2024-09-08 13:26 | Emergency (ER) | payer OTHER, SELFPAY ==
--- NOTE | ~2024-09-08 | US_ITS ---
EXAMINATION: US ABDOMEN LIMITED CLINICAL INFORMATION: Right upper quadrant pain. COMPARISON: None available. TECHNIQUE: Real-time imaging of the right upper quadrant abdominal viscera. FINDINGS: PANCREAS: Visualized portions are unremarkable. LIVER: The liver is normal in size. The liver contour is normal. Parenchymal echogenicity is normal. No focal hepatic lesion. There is no intrahepatic biliary duct dilatation seen. GALLBLADDER: The gallbladder is physiologically distended without evidence of stones, sludge, polyps, wall thickening or pericholecystic fluid. COMMON BILE DUCT: Normal in caliber measuring 0.3 cm in diameter. RIGHT KIDNEY: No hydronephrosis. No renal calculi or focal parenchymal lesions. The measures 9.6 cm in maximum dimension. FREE FLUID: None. US/US abdomen limited IMPRESSION: Unremarkable limited abdomen ultrasound. Electronically signed by: Sixto Olivo MD 09/08/2024 03:30 PM [facility]
[2024-09-08 14:01] VITALS: BP 133/69; PULSE 128; RESP 18; TEMP 37.2; O2SAT 99; BMI 28.3
--- NOTE | 2024-09-08 14:10 | ED_ITS ---
HPI - General Adult General Chief complaint: Nausea/Vomiting/Diarrhea Stated complaint: RUQ pain, vomiting Time Seen by Provider: 09/08/24 14:09 Source: patient Mode of arrival: ambulatory Limitations: no limitations History of Present Illness ED Provider: Vivienne Keating PA-C HPI narrative: Patient is a 29 year old assigned female at , now male, with no reported medical history presenting to the emergency department today with right upper quadrant abdominal pain, nausea, and vomiting. Patient states that over the last day he has had nausea, vomiting, and right upper quadrant abdominal pain. Patient states that no one else in the house is sick at this time. Patient denies any dizziness, lightheadedness, fever, chills, blurry vision, double vision, loss of vision, chest pain, difficulty breathing, shortness of breath, back pain, night sweats, pain with urination, increased urinary frequency, increased urinary urgency, blood in his urine or stool, syncope or a near syncopal episode, recent trauma or falls, bowel incontinence, bladder incontinence, or any other complaints at this time. Onset (ago): day(s) Location: abdomen and right Relieving factors: none Exacerbating factors: none Associated symptoms: nausea/vomiting Treatments prior to arrival: none Related Data Home Medications ?Medication ?Instructions ?Recorded ?Confirmed testosterone 20.25 mg topical Q2D 12/21/20 10/11/23 cetirizine 10 mg tablet (Zyrtec) 10 mg PO DAILY 02/24/22 10/11/23 cholecalciferol (vitamin D3) 25 25 mcg PO DAILY 05/28/22 10/11/23 mcg (1,000 unit) tablet (Vitamin D3) omega-3 fatty acids-fish oil 684 1 cap PO DAILY 05/28/22 10/11/23 mg-1,200 mg capsule,delayed release Previous Rx's ?Medication ?Instructions ?Recorded ondansetron 4 mg disintegrating 4 mg PO Q8H 3 days #9 tabs 09/08/24 tablet Allergies Allergy/AdvReac Type Severity Reaction Status Date / Time adhesive [ADHESIVE] Allergy Unknown RASH Verified 09/08/24 14:02 Penicillins [PENICILLINS] Allergy Unknown RASH Verified 09/08/24 14:02 Review of Systems 2 Constitutional: Constitutional: Reports no additional constitutional complaints, Denies chills, Denies fever(s) and Denies night sweats Eyes: Eyes: Reports no additional eye complaints, Denies blurry vision, Denies change in vision, Denies diplopia, Denies eye discharge, Denies loss of vision and Denies eye pain ENT: Denies dizziness Cardiovascular: Cardiovascular: Reports no additional cardiovascular complaints, Denies chest pain, Denies lightheadedness, Denies Loss of Consciousness and Denies dyspnea Respiratory: Respiratory: Reports no additional respiratory complaints and Denies dyspnea Gastrointestinal: Gastrointestinal: Reports no additional gastrointestinal complaints, Reports abdominal pain, Denies melena, Denies hematochezia, Denies change in bowel habits, Denies change in stool character, Reports nausea and Reports vomiting Genitourinary: Genitourinary: Reports no additional male genitourinary complaints, Denies hematuria, Denies oliguria, Denies difficulty urinating, Denies dysuria, Denies urinary frequency, Denies urinary hesitancy, Denies urinary incontinence and Denies urinary urgency Musculoskeletal: Musculoskeletal: Reports no additional musculoskeletal complaints, Denies numbness and Denies tingling Neurologic: Denies dizziness, Denies loss of vision, Denies numbness and Denies tingling Psychiatric: Psychiatric: Reports no additional psychiatric complaints Endocrine: Endocrine: Reports no additional endocrine complaints Hematologic/Lymphatic: Hematologic/Lymphatic: Reports no additional hematologic/lymphatic complaints Allergic/Immunologic: Allergic/Immunologic: Reports no additional allergic/immunologic complaints PMFSH Past Medical History Attestation statement: The following information was validated with the patient. Source: old records reviewed and nursing notes reviewed Medical History Abdominal pain, chronic, right upper quadrant Surgical History H/O mastectomy History of tonsillectomy Family History Family History Maternal Grandmother Cervical cancer Maternal Grandmother Breast cancer Paternal Grandmother Cancer Social History Social History Household Members: Spouse Housing: Apartment Are you a primary out of school hours care worker to a significant other at home: No Do you presently have visiting nurse or other home services: No Alcohol intake: current Alcohol intake frequency: holidays/special occasions only Alcohol type: beer and wine Patient Tobacco Use Status: Never used Tobacco Second Hand Smoke Exposure: No Advance Directives: No Advance Directives Information Provided: Yes service: No Current occupational status: employed Physical Exam ED Vital Signs: Vital Signs - 24 hr 09/08/24 14:01 Temperature 98.9 F Pulse Rate 128 H Respiratory Rate 18 Blood Pressure 133/69 Pulse Oximetry 99 Oxygen Delivery Method Room Air BMI result Body Mass Index 28.3 Const General: cooperative, no acute distress, alert and awake Nutritional Appearance: well nourished Orientation/consciousness: patient oriented x3 Limitations: no limitations HENMT Head: Yes normal to inspection and Yes atraumatic Ears: hearing grossly normal bilaterally and external ears normal General nose exam: Normal external nose present, no nasal discharge noted and no epistaxis Face and sinus: Yes normal facial exam, No abrasion and No laceration Mouth: Normal oral and palatal mucosa present, no drooling and no muffled voice Eyes General: appearance normal, both eyes and all related structures Periorbital: periorbital findings normal Eyelids: Yes eyelids normal Conjunctivae: conjunctivae normal Pupils: Equal, round and reactive pupils present EOM: EOMs intact bilaterally Neck Neck: Yes normal visual inspection, Yes full ROM and Yes no lymphadenopathy Chest Chest palpation & inspection: normal inspection of the chest Resp Effort & Inspection: normal respiratory effort and able to speak in complete sentences GI Inspection: Yes normal to inspection Palpation (GI): Soft to palpation, not firm, Tenderness to palpation present (GI) in the RUQ, no guarding and not rigid Neuro General: patient oriented x3 and moves all extremities Cranial nerves: Yes Equal, round and reactive pupils present Cognition (Neuro): normal cognition Extrem General: Yes normal to inspection, Yes full ROM and Yes capillary refill normal Psych Appearance: grossly normal Mental Status: mental status grossly normal Affect: normal affect Attitude: cooperative Thought process: Normal thought process present Thought content: Normal thought content present Insight: Good insight present (Psych) Medications Administered Discontinued Medications Generic Name Dose Route Start Last Admin Trade Name Freq PRN Reason Stop Dose Admin Ketorolac Tromethamine 15 mg 09/08/24 14:16 09/08/24 14:26 Ketorolac Tromethamine 15 Mg/Ml Vial IVPUSH 09/08/24 14:17 15 mg ONCE ONE Administration Ondansetron HCl 4 mg 09/08/24 14:16 09/08/24 14:26 Ondansetron Hcl 4 Mg/2 Ml Vial IVPUSH 09/08/24 14:17 4 mg ONCE ONE Administration Medical Decision Making Medical Decision Making [facility] Narrative: Patient is a 29 year old assigned female at , now male, with no reported medical history presenting to the emergency department today with right upper quadrant abdominal pain, nausea, and vomiting. Patient's physical exam was as noted in the physical exam portion of this note. Patient's blood work showed an elevated WBC count of 14.6 and bilirubin 1.2. Patient's RUQ US showed no acute process. I explained my physical exam findings as well as all test results to the patient. I answered all questions asked by the patient. Patient received IV Toradol and Zofran which, upon re-evaluation, he stated it helped his symptoms significantly. I stressed the importance of the patient taking his medication as directed (either prescribed or as the over the counter packaging recommends). I stressed the importance of the patient following up with his primary care provider and a general surgeon to further eval his gallbladder. I stressed the importance of the patient returning to the emergency department immediately if his symptoms were to worsen or if he were to develop any dizziness, shortness of breath, difficulty breathing, chest pain, blurry vision, loss of vision, nausea, vomiting, abdominal pain, fever, chills, back pain, or any other complaints. Patient verbalized agreement and understanding with this treatment plan and discharge. Differential Diagnosis Differential Diagnoses: The differential diagnosis associated with the presentation includes Biliary colic RUQ abdominal pain Admission/Observation Consideration of admission/observation: Escalation of care including admission/observation considered Patient would have been admitted to the hospital had his work up had any findings where hospital admission was appropriate and his clinical presentation warranted hospital admission. Lab Data [facility] Lab Attestation statement: I reviewed the patient's lab results. My interpretation of these results are in the MDM Rationale portion of this note. 09/08/24 14:12 09/08/24 14:12 Labs: Lab Results 09/08/24 Range/Units 14:12 WBC 14.6 H (4.8-10.8) X10*3/uL RBC 5.55 (4.60-5.80) X10*6/uL Hgb 15.6 (14.0-18.0) g/dl Hct 46.4 (42.0-52.0) % MCV 83.6 (80.0-98.0) fL MCH 28.1 (27.0-33.0) pg MCHC 33.6 (31.0-36.0) g/dl RDW 13.6 (11.0-16.0) % Plt Count 383 (160-400) X10*3/uL MPV 8.4 L (9.4-12.4) fL Immature Gran % (Auto) 0.4 (0.0-0.4) % Neut % (Auto) 92.2 H (45-73) % Lymph % (Auto) 3.6 L (20-40) % [place] % (Auto) 3.3 (2-11) % Eos % (Auto) 0.2 (0-4) % Baso % (Auto) 0.3 (0-2) % Lymph # (Auto) 0.5 L (1.2-4.9) X10*3/uL [place] # (Auto) 0.5 (0.1-1.2) X10*3/uL Eos # (Auto) 0.0 (0.0-0.4) X10*3/uL Baso # (Auto) 0.0 (0.0-0.2) X10*3/uL Abs Immat Gran (auto) 0.06 H (0.00-0.03) X10*3/uL Absolute Neuts (auto) 13.5 H (2.0-8.3) x10*3/uL Absolute Nucleated RBC 0.000 (0.0-0.012) X10*3/uL Nucleated RBC % (auto) 0.0 (0.0-0.2) /100WBC Smear Tech's Comments VERIFIED PT 12.6 H (10.9-12.4) SEC INR 1.1 (0.9-1.1) Sodium 137 (135-145) mmol/L Potassium 4.1 (3.3-5.1) mmol/L Chloride 105 (96-108) mmol/L Carbon Dioxide 26 (22-29) mmol/L Anion Gap 10 L (12-20) BUN 10 (9-16) mg/dL Creatinine 0.76 (0.5-1.4) mg/dL Estim Creat Clear Calc 137.4 Estimated GFR > 60 Random Glucose 109 (60-115) mg/dL Calcium 9.5 (8.4-10.2) mg/dL Total Bilirubin 1.2 H (0.0-1.0) mg/dL AST 33 (5-37) U/L ALT 48 H (0-40) U/L Alkaline Phosphatase 78 (39-117) U/L Total Protein 7.7 (6.5-8.0) g/dL Albumin 4.7 (3.5-5.0) g/dL Lipase 23 (8-78) U/L Independent Interpretation I performed an independent interpretation of an: Ultrasound Interpretation: My interpretation is in agreement with the radiologist's impression of this imaging study. LEXAMINATION: US ABDOMEN LIMITED CLINICAL INFORMATION: Right upper quadrant pain. COMPARISON: None available. TECHNIQUE: Real-time imaging of the right upper quadrant abdominal viscera. FINDINGS: PANCREAS: Visualized portions are unremarkable. LIVER: The liver is normal in size. The liver contour is normal. Parenchymal echogenicity is normal. No focal hepatic lesion. There is no intrahepatic biliary duct dilatation seen. GALLBLADDER: The gallbladder is physiologically distended without evidence of stones, sludge, polyps, wall thickening or pericholecystic fluid. COMMON BILE DUCT: Normal in caliber measuring 0.3 cm in diameter. RIGHT KIDNEY: No hydronephrosis. No renal calculi or focal parenchymal lesions. The measures 9.6 cm in maximum dimension. FREE FLUID: None. US/US abdomen limited IMPRESSION: Unremarkable limited abdomen ultrasound. Electronically signed by: Sixto Olivo MD 09/08/2024 03:30 PM [facility] [place] Dictated By: Sixto Olivo MD Signed By: Electronically signed by Sixto Olivo MD 09/08/24 1530 Radiology Impression Discussion of test interpretation with radiology: I have reviewed the radiologist's reading. Discharge Plan Discharge Clinical Impression: Abdominal pain, Biliary colic Patient Disposition: Home, Self-Care Instructions: Biliary Colic (ED), Abdominal Pain (ED) Additional Instructions: Follow up with your primary care provider and a general surgeon. Return to the emergency department immediately if your symptoms worsen or if you develop any dizziness, shortness of breath, difficulty breathing, chest pain, blurry vision, loss of vision, nausea, vomiting, abdominal pain, fever, chills, back pain, or any other complaints. Prescriptions: New ondansetron 4 mg tablet,disintegrating 4 mg PO Q8H 3 Days Qty: 9 0RF No Action testosterone 20.25 mg/1.25 gram (1.62 %) gel in metered-dose pump 20.25 mg topical Q2D cetirizine [Zyrtec] 10 mg Tablet 10 mg PO DAILY cholecalciferol (vitamin D3) [Vitamin D3] 25 mcg (1,000 unit) Tablet 25 mcg PO DAILY [place] 3 Fish Oil 684-1,200 mg Capsule,Delayed Release(Dr/Ec) 1 cap PO DAILY Referrals: [facility] [place] General Surgeons [Provider Group] (Call to establish and follow up with a general surgeon to further evaluate your gallbladder.) [facility] [place] Family Medicine [Provider Group] (Call to establish and follow up with a primary care provider. If you already have a primary care provider, please follow up with them.) [facility] [place] Primary Care, Marie [Provider Group] (Call to establish and follow up with a primary care provider. If you already have a primary care provider, please follow up with them.) [facility] [place] Primary Care,Miguel A [Provider Group] (Call to establish and follow up with a primary care provider. If you already have a primary care provider, please follow up with them.) Stand Alone Forms: Work/School Release Print Language: Telugu
[2024-09-08 14:19] LABS: Basophils Percent Auto 0.3 % (0-2); Eosinophils Percent Auto 0.2 % (0-4); Hematocrit 46.4 % (42.0-52.0); Hemoglobin 15.6 g/dl (14.0-18.0); Imm Gran Abs Auto 0.06 X10*3/uL (0.00-0.03); Imm Gran Pct Auto 0.4 % (0.0-0.4); Lymphocytes Absolute Auto 0.5 X10*3/uL (1.2-4.9); Lymphocytes Percent Auto 3.6 % (20-40); MANUAL DIFF FLAG SCAN; Mean Corpuscular HGB Conc 33.6 g/dl (31.0-36.0); Mean Corpuscular Hemoglobin 28.1 pg (27.0-33.0); Mean Corpuscular Volume 83.6 fL (80.0-98.0); Mean Platelet Volume 8.4 fL (9.4-12.4); Monocytes Absolute Auto 0.5 X10*3/uL (0.1-1.2); Monocytes Percent Auto 3.3 % (2-11); Neutrophils Absolute Auto 13.5 x10*3/uL (2.0-8.3); Neutrophils Percent Auto 92.2 % (45-73); Platelet Count 383 X10*3/uL (160-400); Red Blood Count 5.55 X10*6/uL (4.60-5.80); Red Cell Distribution Width 13.6 % (11.0-16.0); SCAN SMEAR FLAG 1; White Blood Count 14.6 X10*3/uL (4.8-10.8)
[2024-09-08] MEDS: Ketorolac Tromethamine 15 MG/ML VIAL IVPUSH (14:26)
[2024-09-08] MEDS: ondansetron HCL 4 MG/2 ML VIAL IVPUSH (14:26)
[2024-09-08 14:28] LABS: INTERNATIONAL NORM RATIO 1.1 (0.9-1.1); Prothrombin Time 12.6 SEC (10.9-12.4)
[2024-09-08 14:42] LABS: Alanine Aminotransferase 48 U/L (0-40); Albumin Level 4.7 g/dL (3.5-5.0); Anion Gap 10 (12-20); Aspartate Amino Transferase 33 U/L (5-37); Bilirubin Total 1.2 mg/dL (0.0-1.0); Blood Urea Nitrogen 10 mg/dL (9-16); Calcium 9.5 mg/dL (8.4-10.2); Carbon Dioxide 26 mmol/L (22-29); Chloride 105 mmol/L (96-108); Creatinine Clr Calc Pharmacy 137.4; Estimated Glomerular Filt Rate > 60; Glucose Random 109 mg/dL (60-115); Lipase 23 U/L (8-78); Potassium 4.1 mmol/L (3.3-5.1); Sodium 137 mmol/L (135-145); Total Protein 7.7 g/dL (6.5-8.0)
[2024-09-08 14:48] LABS: SLIDE REVIEW VERIFIED
[2024-09-08 15:17] LABS: Alkaline Phosphatase 78 U/L (39-117)
[2024-09-08 16:12] VITALS: BP 106/67; PULSE 110; RESP 18; TEMP 36.9; O2SAT 99
== END 2024-09-08 16:15 | disposition home or self-care (01) ==
PROVIDERS: Registered Nurse Emergency; Emergency Provider Emergency Medicine
DX: K80.50 Calculus of bile duct without cholangitis or cholecystitis without obstruction (principal); R10.11 Right upper quadrant pain; R11.2 Nausea with vomiting, unspecified
CPT/HCPCS: 36415; 76705; 80053; 83690; 85025; 85610; 96374; 96375; 99283; 99284; J1885; J2405

== ENCOUNTER → 2024-09-08 14:04 | Outpatient (BNV) | payer OTHER, SELFPAY | PROVIDERS: Emergency Provider Emergency Medicine; Visit Provider Radiology Diagnostic Radiology | DX: R10.11 Right upper quadrant pain (principal) | CPT/HCPCS: 76705 ==

== ENCOUNTER 2024-11-23 12:46 | Outpatient (REF) | payer OTHER, SELFPAY ==
[2024-11-23 13:03] LABS: MANUAL DIFF FLAG NO
[2024-11-23 14:07] LABS: Basophils Absolute Auto 0.1 X10*3/uL (0.0-0.2); Basophils Percent Auto 0.9 % (0-2); Eosinophils Absolute Auto 0.1 X10*3/uL (0.0-0.4); Eosinophils Percent Auto 1.8 % (0-4); Hematocrit 46.3 % (42.0-52.0); Hemoglobin 15.3 g/dl (14.0-18.0); Imm Gran Abs Auto 0.01 X10*3/uL (0.00-0.03); Imm Gran Pct Auto 0.1 % (0.0-0.4); Lymphocytes Absolute Auto 2.7 X10*3/uL (1.2-4.9); Lymphocytes Percent Auto 38.8 % (20-40); Mean Corpuscular Hemoglobin 28.2 pg (27.0-33.0); Mean Corpuscular Volume 85.3 fL (80.0-98.0); Mean Platelet Volume 8.6 fL (9.4-12.4); Monocytes Absolute Auto 0.5 X10*3/uL (0.1-1.2); Neutrophils Absolute Auto 3.6 x10*3/uL (2.0-8.3); Neutrophils Percent Auto 51.4 % (45-73); Platelet Count 382 X10*3/uL (160-400); Red Blood Count 5.43 X10*6/uL (4.60-5.80); Red Cell Distribution Width 13.1 % (11.0-16.0)
[2024-11-23 15:24] LABS: Alanine Aminotransferase 25 U/L (0-40); Albumin Level 4.4 g/dL (3.5-5.0); Alkaline Phosphatase 74 U/L (39-117); Aspartate Amino Transferase 27 U/L (5-37); Bilirubin Direct 0.3 mg/dL (0.0-0.5); Bilirubin Total 0.9 mg/dL (0.0-1.0); Total Protein 7.5 g/dL (6.5-8.0)
== END 2024-11-23 12:47 | disposition home or self-care (01) ==
LOC: HO.LAB 12:46
PROVIDERS: PCP Internal Medicine Sports Medicine; Visit Provider Pediatrics
DX: R10.11 Right upper quadrant pain (principal)
CPT/HCPCS: 36415; 80076; 85025

== ENCOUNTER 2024-12-07 08:48 | Outpatient (REF) | payer OTHER, SELFPAY ==
[2024-12-07 15:50] LABS: Hemoglobin 15.1 g/dl (14.0-18.0)
[2024-12-14 12:08] LABS: Testosterone, Free 36.9 pg/mL (35.0-155.0); Testosterone, Total 214 ng/dL (250-1100)
== END 2024-12-07 08:49 | disposition home or self-care (01) ==
LOC: HO.LAB 08:48
PROVIDERS: PCP Internal Medicine Sports Medicine; Visit Provider Pediatrics Pediatric Endocrinology
DX: F64.9 Gender identity disorder, unspecified (principal)
CPT/HCPCS: 36415; 84402; 84403; 85014; 85018

== ENCOUNTER 2025-01-24 12:44 | Outpatient (REF) | payer OTHER, SELFPAY ==
--- NOTE | ~2025-01-24 | US_ITS ---
CLINICAL HISTORY: F U LYMPHADENOPATHY, CHANGE IN LYMPHADENOPATHY,ENLARDED LYMPH NODES US neck nonvascular Comparison: CT/MN/SR - CT SOFT TISSUE NECK W IV CON - 10/04/23 15:18 EST US/MN/SR - US SOFT TISS HEAD AND/OR NECK - 09/07/23 13:12 EST Findings: Bulbous cervical lymph nodes with cortical thickening most of which retain their reniform shape with central flow. No evidence of capsular disruption, measurements as follows: Right: Submandibular medial: 1.3 x 0.8 x 1.3 cm, 1.0 x 0.7 x 0.7 cm Submandibular lateral: 0.4 x 0.3 x 0.5 cm and 0.7 x 0.4 x 0.7 cm Submental: 0.6 x 0.3 x 0.4 cm and 0.6 x 0.4 x 0.5 cm Left: Submandibular: 1.2 x 0.7 x 1.1 cm and 0.7 x 0.5 x 0.8 cm. Impression: Probable reactive cervical lymph nodes continue follow-up is recommended unless FNA is performed. Direct comparisons with previous ultrasound dated 09/07/2023 is less than optimal since the labeling of the lymph nodes between the 2 cases may be discordant. This document has been electronically signed by: Gustabo Brice MD on 01/25/2025 15:38:33
== END 2025-01-24 12:45 | disposition home or self-care (01) ==
LOC: HO.US 12:44
PROVIDERS: PCP Internal Medicine Sports Medicine; Visit Provider Internal Medicine Sports Medicine
DX: R59.0 Localized enlarged lymph nodes (principal)
CPT/HCPCS: 76536

== ENCOUNTER → 2025-01-24 12:47 | Outpatient (BNV) | payer OTHER, SELFPAY | PROVIDERS: PCP Internal Medicine Sports Medicine; Visit Provider Radiology Diagnostic Radiology | DX: R59.0 Localized enlarged lymph nodes (principal) | CPT/HCPCS: 76536 ==

== ENCOUNTER → 2025-02-09 20:30 | Outpatient (REF) | payer OTHER, SELFPAY | LOC: HO.SL 20:30 | PROVIDERS: PCP Internal Medicine Sports Medicine; Visit Provider Internal Medicine | DX: Z13.89 Encounter for screening for other disorder (principal) ==

== ENCOUNTER 2025-04-18 11:43 | Outpatient (REF) | payer OTHER, SELFPAY ==
[2025-04-18 12:04] LABS: MANUAL DIFF FLAG NO
[2025-04-18 12:34] LABS: Hematocrit 46.4 % (42.0-52.0); Hemoglobin 15.1 g/dl (14.0-18.0); Imm Gran Abs Auto 0.01 X10*3/uL (0.00-0.03); Imm Gran Pct Auto 0.2 % (0.0-0.4); Lymphocytes Absolute Auto 2.0 X10*3/uL (1.2-4.9); Mean Corpuscular HGB Conc 32.5 g/dl (31.0-36.0); Mean Corpuscular Hemoglobin 28.1 pg (27.0-33.0); Mean Corpuscular Volume 86.2 fL (80.0-98.0); NRBC Abs Auto 0.000 X10*3/uL (0.0-0.012); NRBC Pct Auto 0.0 /100WBC (0.0-0.2); Platelet Count 370 X10*3/uL (160-400); Red Blood Count 5.38 X10*6/uL (4.60-5.80); White Blood Count 5.3 X10*3/uL (4.8-10.8)
[2025-04-18 13:03] LABS: Iron 116 mcg/dL (45-160); Percent Iron Saturation 34 % (15-50); Total Iron Binding Capacity 338 mcg/dL (228-428); Unsaturated Iron Binding 222 ug/dL
[2025-04-18 13:17] LABS: Ferritin 24 ng/mL (20-250)
== END 2025-04-18 11:44 | disposition home or self-care (01) ==
LOC: HO.LAB 11:43
PROVIDERS: Visit Provider Internal Medicine Sports Medicine
DX: E61.1 Iron deficiency (principal); E55.9 Vitamin D deficiency, unspecified
CPT/HCPCS: 36415; 82306; 82728; 83540; 85025

== ENCOUNTER 2025-08-11 16:29 | Outpatient (REF) | payer OTHER, SELFPAY ==
--- NOTE | ~2025-08-11 | MR_ITS ---
EXAMINATION: MR BRAIN WITHOUT CONTRAST CLINICAL INFORMATION: Migraine without aura COMPARISON: January 29, 2021 TECHNIQUE: MRI of the brain was obtained using routine sequences without contrast. FINDINGS: No restricted diffusion. No acute intracranial hemorrhage, mass effect, midline shift, hydrocephalus or herniation. Garrett-white matter differentiation is normal. Slight prominence of the extra-axial CSF spaces in the right to a lesser extent left bifrontal lobes. Posterior cranial fossa contents demonstrated no signal abnormality or mass effect. Flow-void signal within the main cerebral vessels is normal. Craniocervical junction is intact with borderline position of the cerebellar tonsils. Sellar/suprasellar region is normal. Polypoid left maxillary sinus disease with focal intermediate T1 signal. MR/MR head/brain wo con IMPRESSION: No acute brain abnormality. Slight asymmetric bifrontal lobes. Polypoid left maxillary sinus disease. Recommend direct inspection. Electronically signed by: Leonardo Lopez MD 08/13/2025 07:16 AM [facility]
== END 2025-08-11 16:30 | disposition home or self-care (01) ==
LOC: HO.MRI 16:29
PROVIDERS: Visit Provider Internal Medicine Sports Medicine
DX: G43.109 Migraine with aura, not intractable, without status migrainosus (principal)
CPT/HCPCS: 70551

== ENCOUNTER → 2025-08-11 16:42 | Outpatient (BNV) | payer OTHER, SELFPAY | PROVIDERS: Visit Provider Radiology Diagnostic Radiology | DX: G43.109 Migraine with aura, not intractable, without status migrainosus (principal); J33.1 Polypoid sinus degeneration | CPT/HCPCS: 70551 ==